=== PATIENT | female | born 1980 | race American Indian/Alaskan Native ===

== ENCOUNTER 2016-07-07 14:27 | Outpatient (CLI) | payer MEDICAID ==
[2016-07-07 15:30] VITALS: BP 117/64
== END 2016-07-07 15:35 | disposition home or self-care (01) ==
LOC: TRG 14:27
PROVIDERS: ATTEND Obstetrics & Gynecology
DX: O47.03 False labor before 37 completed weeks of gestation, third trimester (principal); Z3A.28 28 weeks gestation of pregnancy
CPT/HCPCS: 59025

== ENCOUNTER 2016-07-16 15:41 | Inpatient (IN) | payer MEDICAID ==
--- NOTE | 2016-07-16 17:49 | History and Physical Report ---
History of Present Illness Date of examination: 07/16/16 Date of admission: 07/16/16 Chief complaint: Was sent to [facility] for admission per M Dr. Durham History of present illness: This is a 36 yo at 29+ weeks who was admitted 1 weeks ago and stayed in house for PIH, IUGR, low dopplers and signed out AMA 1 week ago. She had an appt today that showed dopplers decreased and was sent here for admission until delivery. Riddhi has no complaints. no vb no leaking no vb and good fm. No horowitz, bv nor scotomata. OB problem list late entry 15 weeks obesity chronic HTN with preeclampsia asthma previous c/s -desires repeat s/p bmz and mag for neuroprotection HSV2+ Past History Past Medical History: asthma, hypertension, hematologic disorders (sickle cell trait), other Past Surgical History: section, other (LEEP) [employer]MENT [employer] History: chlamydia, herpes Family/Genetic History: diabetes, heart disease, hypertension, other (acute bronchitis ) Social history: , smoking - Obstetrical History Expected Date of Delivery: 09/27/16 Actual Gestation: 29 Week(s) 4 Day(s) : 3 Para: 1 Hx # Term Pregnancies: 1 Number of Pregnancies: 0 Spontaneous Abortions: 0 Induced : 0 Number of Living Children: 1 Medications and Allergies Allergies Allergy/AdvReac Type Severity Reaction Status Date / Time lisinopril Allergy Severe Angioedema Verified 09/30/14 08:57 shellfish derived Allergy Swelling Verified 01/03/13 16:41 Home Medications Medication Instructions Recorded Confirmed Last Taken Type Acetaminophen/Codeine [Tylenol #3] 1 tab PO Q6H PRN #7 tab 04/01/16 Unknown Rx Ondansetron [Zofran TAB] 4 mg PO Q8HR PRN #14 tablet 04/01/16 Unknown Rx Review of Systems Constitutional: weight gain Eyes: deferred Ears, nose, mouth and throat: deferred Cardiovascular: no chest pain, no rapid/irregular heart beat, no syncope, no lightheadedness, no shortness of breath Breasts: deferred Gastrointestinal: no abdominal pain, no nausea, no vomiting, no diarrhea Genitourinary: deferred, normal appearance, no vaginal bleeding, no leakage of fluid, no dysuria, no pelvic pain, no genital sores, no contractions Rectal Exam: deferred Integumentary: deferred - Vital Signs Vital signs: Vital Signs Pulse BP Pulse Ox 70 137/74 98 07/16/16 16:54 07/16/16 16:54 07/16/16 16:54 Temp Pulse Resp BP Pulse Ox 97.8 F 81 20 153/83 98 07/16/16 16:56 07/16/16 17:39 07/16/16 16:56 07/16/16 17:20 07/16/16 17:39 - Physical Exam Breasts: Positive: deferred Cardiovascular: Regular rate, Normal S1, Normal S2 Lungs: Positive: Clear to auscultation, Normal air movement Abdomen: Positive: normal appearance, soft, normal bowel sounds. Negative: distention, tenderness Genitourinary (Female): Positive: normal external genitalia, normal perenium Vulva: both: normal Vagina: Positive: normal moisture. Negative: discharge, ulceration Uterus: Positive: enlarged Extremities: Positive: normal. Negative: tenderness Deep Tendon Reflex Grade: Normal +2 - Obstetrical FHR: category 1 Results All other labs normal. Assessment and Plan A/P HD#1 ( second hospital visit ) preeclampsia mild , chronic htn, iugr, abnormal dopplers 1. admit to labor and delivery 2. Per MFM initiate 24 hr Mag 3. labetolol 300 mg tid 4. aldomet 500 mg po bid 5. doppler and BPP every other day ( Saturday,Sat, Saturday) 6. PIH labs weekly with 24 hr urine will start tomorrow 7. s/p bmz x2 and Mag for neuro protection 8. will keep in house until delivery
[2016-07-16] MEDS ORDERED: COLACE PO PRN (17:57)
[2016-07-16] MEDS ORDERED: TYLENOL PO PRN (17:57)
[2016-07-16] MEDS ORDERED: AMBIEN PO PRN (17:57)
[2016-07-16 18:13] LABS: Basophils % (Auto) 1.1 % (0.0-1.8); Eosinophils % (Auto) 1.4 % (0.0-4.3); Hematocrit 36.3 % (30.3-42.9); Hemoglobin 12.2 gm/dl (10.1-14.3); Mean Corpuscular HGB Conc 34 % (30-34); Mean Corpuscular Hemoglobin 26 pg (28-32); Mean Corpuscular Volume 78 fl (79-97); Platelet Count 181 K/mm3 (140-440); Red Blood Count 4.67 M/mm3 (3.65-5.03); White Blood Count 8.9 K/mm3 (4.5-11.0)
[2016-07-16] MEDS ORDERED: MAGNESIUM SULFATE 4GM/100ML 4 GM/100 ML BAG IV ONE (18:14)
[2016-07-16 18:35] LABS: Alanine Aminotransferase 7 units/L (7-56); Lactate Dehydrogenase 170 units/L (91-180); Uric Acid 6.2 mg/dL (3.5-7.6)
[2016-07-16] MEDS: MAGNESIUM SULFATE 40GM/1000ML 40 GM/1,000 ML BAG IV SCH (19:07)
[2016-07-16 21:07] LABS: Bacteria,Urine 1+ /HPF (Negative); Bilirubin,Urine NEG (Negative); Blood,Urine NEG (Negative); Ketones,Urine TR mg/dL (Negative); Leukocyte Esterase,Urine NEG (Negative); Mucus,Urine FEW /HPF; Nitrite,Urine NEG (Negative); Protein,Urine <15 mg/dL mg/dL (Negative)
[2016-07-16] MEDS: ALDOMET PO SCH (22:29)
[2016-07-16] MEDS: NORMODYNE PO SCH (22:33)
[2016-07-17] MEDS: NORMODYNE PO SCH ×3 (06:10→22:29)
[2016-07-17] MEDS: LACTATED RINGERS 1,000 ML IV SCH ×2 (06:26→19:04)
--- NOTE | 2016-07-17 07:31 | Ultrasound Report ---
BIOPHYSICAL PROFILE: INDICATION: well being. COMPARISON: 07/06/2016. TECHNIQUE: Transabdominal ultrasound with Doppler interrogation. 2 - breathing movements 2 - movements 2 - posture and tone 2 - Qualitative amniotic fluid volume 8 - TOTAL SCORE OF POSSIBLE 8 Heart Rate (bpm) 160
[2016-07-17] MEDS: PRENATAL VITAMIN PO SCH (11:00)
[2016-07-17] MEDS: ALDOMET PO SCH ×2 (11:00→22:27)
--- NOTE | 2016-07-17 12:57 | Ultrasound Report ---
OB LIMITED INDICATION: well being. COMPARISON: 07/06/2016 TECHNIQUE: Transabdominal grayscale ultrasound with Doppler interrogation. Gestation: [place] Position: Transverse - head maternal left Amniotic Fluid: WNL (7-24 cm) ADRIEN = 18.6 cm Placenta: Fundal Placental Grade: I Heart Rate: 137 BPM Cervical length: 3.3 cm (Normal > 3 cm)
--- NOTE | 2016-07-17 13:02 | Ultrasound Report ---
ULTRASOUND OB VELOCIMETRY UMBILICAL ARTERY: HISTORY: well-being. COMPARISON: 07/06/2016 FINDINGS: Transabdominal imaging with spectral Doppler interrogation. 3 separate segments of the cord were evaluated. heart rate measures 131 beats per minute. Abnormal waveforms with no end-diastolic flow noted. Free loop Pulsitivity Indices (PI) in the examined loops demonstrate average PI = 2. CONCLUSION: Loss of end-diastolic flow in the umbilical cord again noted, as above. Thank you for the opportunity to participate in this patient's care.
[2016-07-17] MEDS: MAGNESIUM SULFATE 40GM/1000ML 40 GM/1,000 ML BAG IV SCH (14:00)
--- NOTE | 2016-07-17 14:19 | Progress Note ---
Assessment and Plan A/P HD#2 ( [facility] hospital admisssion after AMA ) preeclampsia mild , chronic htn, iugr, abnormal dopplers 1. admit to labor and delivery 2. Per MFM initiate 24 hr Mag ( end tonight) 3. labetolol 300 mg tid 4. aldomet 500 mg po bid 5. doppler and BPP every other day ( saturday, and saturday) 6. PIH labs weekly with 24 hr urine will start tomorrow 7. s/p bmz x2 and Mag for neuro protection 8. will keep in house until delivery 9. peds is aware of patient Subjective - Subjective Date of service: 07/17/16 Principal diagnosis: chronic htn, iugr, decreased end diastolic flow Interval history: This is a 36 yo at 29+ weeks who was admitted 1 weeks ago and stayed in house for PIH, IUGR, low dopplers and signed out AMA 1 week ago. She had an appt today that showed dopplers decreased and was sent here for admission until delivery. Patinet has no complaints. no vb no leaking no vb and good fm. No horowitz, bv nor scotomata. OB problem list late entry 15 weeks obesity chronic HTN with preeclampsia asthma previous c/s -desires repeat s/p bmz and mag for neuroprotection HSV2+ Patient reports: movement normal, no new complaints, no loss of fluid, no vaginal bleeding, no contractions Objective - Vital Signs Vital Signs: Vital Signs - 12hr 07/17/16 07/17/16 07/17/16 02:16 02:21 02:26 Temperature Pulse Rate 77 78 86 Pulse Rate [ From Monitor] Respiratory Rate Blood Pressure 145/65 Blood Pressure [Left Arm] O2 Sat by Pulse 98 98 98 Oximetry 07/17/16 07/17/16 07/17/16 02:31 02:36 02:41 Temperature Pulse Rate 80 79 78 Pulse Rate [ From Monitor] Respiratory Rate Blood Pressure Blood Pressure [Left Arm] O2 Sat by Pulse 98 98 98 Oximetry 07/17/16 07/17/16 07/17/16 02:46 02:51 02:56 Temperature Pulse Rate 75 77 77 Pulse Rate [ From Monitor] Respiratory Rate Blood Pressure Blood Pressure [Left Arm] O2 Sat by Pulse 99 98 98 Oximetry 07/17/16 07/17/16 07/17/16 03:01 03:06 03:11 Temperature Pulse Rate 77 78 79 Pulse Rate [ From Monitor] Respiratory Rate Blood Pressure Blood Pressure [Left Arm] O2 Sat by Pulse 98 98 97 Oximetry 07/17/16 07/17/16 07/17/16 03:16 03:21 03:26 Temperature Pulse Rate 75 75 75 Pulse Rate [ From Monitor] Respiratory Rate Blood Pressure 161/84 Blood Pressure [Left Arm] O2 Sat by Pulse 97 97 97 Oximetry 07/17/16 07/17/16 07/17/16 03:31 03:36 03:41 Temperature Pulse Rate 81 79 73 Pulse Rate [ From Monitor] Respiratory Rate Blood Pressure Blood Pressure [Left Arm] O2 Sat by Pulse 98 98 96 Oximetry 07/17/16 07/17/16 07/17/16 03:43 03:46 03:51 Temperature Pulse Rate 79 81 81 Pulse Rate [ From Monitor] Respiratory Rate Blood Pressure Blood Pressure [Left Arm] O2 Sat by Pulse 94 96 97 Oximetry 07/17/16 07/17/16 07/17/16 03:56 04:01 04:06 Temperature Pulse Rate 75 75 77 Pulse Rate [ From Monitor] Respiratory Rate Blood Pressure Blood Pressure [Left Arm] O2 Sat by Pulse 97 98 97 Oximetry 07/17/16 07/17/16 07/17/16 04:11 04:15 04:16 Temperature 97.8 F Pulse Rate 77 78 Pulse Rate [ 75 From Monitor] Respiratory 18 Rate Blood Pressure 152/93 Blood Pressure 152/75 [Left Arm] O2 Sat by Pulse 97 97 Oximetry 07/17/16 07/17/16 07/17/16 04:21 04:26 04:31 Temperature Pulse Rate 75 75 74 Pulse Rate [ From Monitor] Respiratory Rate Blood Pressure Blood Pressure [Left Arm] O2 Sat by Pulse 98 98 98 Oximetry 07/17/16 07/17/16 07/17/16 04:36 04:41 04:46 Temperature Pulse Rate 77 77 73 Pulse Rate [ From Monitor] Respiratory Rate Blood Pressure Blood Pressure [Left Arm] O2 Sat by Pulse 97 98 98 Oximetry 07/17/16 07/17/16 07/17/16 04:51 04:56 05:01 Temperature Pulse Rate 74 77 79 Pulse Rate [ From Monitor] Respiratory Rate Blood Pressure Blood Pressure [Left Arm] O2 Sat by Pulse 97 97 98 Oximetry 07/17/16 07/17/16 07/17/16 05:06 05:11 05:16 Temperature Pulse Rate 81 84 76 Pulse Rate [ From Monitor] Respiratory Rate Blood Pressure 154/79 Blood Pressure [Left Arm] O2 Sat by Pulse 96 98 98 Oximetry 07/17/16 07/17/16 07/17/16 05:21 05:26 05:31 Temperature Pulse Rate 79 80 80 Pulse Rate [ From Monitor] Respiratory Rate Blood Pressure Blood Pressure [Left Arm] O2 Sat by Pulse 98 97 93 Oximetry 07/17/16 07/17/16 07/17/16 05:36 05:41 05:46 Temperature Pulse Rate 79 80 75 Pulse Rate [ From Monitor] Respiratory Rate Blood Pressure Blood Pressure [Left Arm] O2 Sat by Pulse 98 96 97 Oximetry 07/17/16 07/17/16 07/17/16 05:51 05:56 06:01 Temperature Pulse Rate 72 73 75 Pulse Rate [ From Monitor] Respiratory Rate Blood Pressure Blood Pressure [Left Arm] O2 Sat by Pulse 98 98 97 Oximetry 07/17/16 07/17/16 07/17/16 06:06 06:10 06:11 Temperature Pulse Rate 75 76 78 Pulse Rate [ From Monitor] Respiratory Rate Blood Pressure 172/87 172/87 Blood Pressure [Left Arm] O2 Sat by Pulse 98 98 Oximetry 07/17/16 07/17/16 07/17/16 06:16 06:21 06:26 Temperature Pulse Rate 68 73 72 Pulse Rate [ From Monitor] Respiratory Rate Blood Pressure 144/77 Blood Pressure [Left Arm] O2 Sat by Pulse 98 97 97 Oximetry 07/17/16 07/17/16 07/17/16 06:31 06:36 07:16 Temperature Pulse Rate 72 75 71 Pulse Rate [ From Monitor] Respiratory Rate Blood Pressure 126/68 Blood Pressure [Left Arm] O2 Sat by Pulse 98 99 Oximetry 07/17/16 07/17/16 07/17/16 08:00 08:07 08:08 Temperature 97.2 F L Pulse Rate 69 73 Pulse Rate [ 73 From Monitor] Respiratory 18 Rate Blood Pressure 178/81 168/67 Blood Pressure 160/70 [Left Arm] O2 Sat by Pulse Oximetry 07/17/16 07/17/16 07/17/16 08:10 08:17 09:16 Temperature Pulse Rate 67 71 68 Pulse Rate [ From Monitor] Respiratory Rate Blood Pressure 160/70 135/85 155/77 Blood Pressure [Left Arm] O2 Sat by Pulse Oximetry 07/17/16 07/17/16 07/17/16 10:16 11:00 11:16 Temperature Pulse Rate 81 81 68 Pulse Rate [ From Monitor] Respiratory Rate Blood Pressure 158/78 158/78 165/84 Blood Pressure [Left Arm] O2 Sat by Pulse Oximetry 07/17/16 07/17/16 11:40 12:16 Temperature 98.0 F Pulse Rate 65 Pulse Rate [ 81 From Monitor] Respiratory 18 Rate Blood Pressure 167/84 Blood Pressure 158/78 [Left Arm] O2 Sat by Pulse Oximetry - Exam Breasts: deferred Cardiovascular: Regular rate, Normal S1, Normal S2 Lungs: Clear to auscultation, Normal air movement Abdomen: Present: normal appearance, soft, normal bowel sounds. Absent: distention, tenderness, guarding Vulva: both: normal Uterus: Present: normal, firm, fundal height above umbilicus FHR: category 1 - Labs Labs: Abnormal Labs 07/16/16 07/16/16 07/17/16 17:50 17:50 08:58 MCV 78 L MCH 26 L Seg Neutrophils % 71.4 H Creatinine 0.6 L Magnesium 4.6 H Laboratory Results - last 24 hr 07/16/16 07/16/16 07/16/16 17:50 17:50 17:50 WBC 8.9 RBC 4.67 Hgb 12.2 Hct 36.3 MCV 78 L MCH 26 L MCHC 34 RDW 14.0 Plt Count 181 Lymph % (Auto) 21.2 [place] % (Auto) 4.9 Eos % (Auto) 1.4 Baso % (Auto) 1.1 Lymph # 1.9 [place]on # 0.4 Eos # 0.1 Baso # 0.1 Seg Neutrophils % 71.4 H Seg Neutrophils # 6.4 Creatinine 0.6 L Estimated GFR > 60 Uric Acid 6.2 Magnesium AST 12 ALT 7 Lactate Dehydrogenase 170 Urine Color Urine Turbidity Urine pH Ur Specific Loiza Urine Protein Urine Glucose (UA) Urine Ketones Urine Blood Urine Nitrite Urine Bilirubin Urine Urobilinogen Ur Leukocyte Esterase Urine WBC (Auto) Urine RBC (Auto) Urine Bacteria (Auto) Urine Mucus Blood Type A POSITIVE Antibody Screen Negative 07/16/16 07/17/16 Unknown 08:58 WBC RBC Hgb Hct MCV MCH MCHC RDW Plt Count Lymph % (Auto) Kenton % (Auto) Eos % (Auto) Baso % (Auto) Lymph # Kenton # Eos # Baso # Seg Neutrophils % Seg Neutrophils # Creatinine Estimated GFR Uric Acid Magnesium 4.6 H AST ALT Lactate Dehydrogenase Urine Color Yellow Urine Turbidity Clear Urine pH 6.0 Ur Specific Loiza 1.019 Urine Protein <15 mg/dl Urine Glucose (UA) Neg Urine Ketones Tr Urine Blood Neg Urine Nitrite Neg Urine Bilirubin Neg Urine Urobilinogen 2.0 Ur Leukocyte Esterase Neg Urine WBC (Auto) 1.0 Urine RBC (Auto) 1.0 Urine Bacteria (Auto) 1+ Urine Mucus Few Blood Type Antibody Screen
--- NOTE | 2016-07-17 19:24 | Consultation ---
History of Present Illness Consult date: 07/17/16 Requesting physician: CITLALI SANTOS History of present illness: IUP at 29 weeks gestation. Recurrent Persistent Absent End Diastolic Flow Chronic hypertension. Rule out superimposed preeclampsia. IUGR of unknown etiology. As you are aware, this is a 36 year old para 1011 who is currently at 29 weeks gestation based on an HENRRY of 09/27/16. Patient was previously hospitalized at [facility] due to AEDV and was discharged home against medical advice. Todays ultrasound continues to show AEDV. During her last visit she was evaluated for CHTN however her blood pressure today is 135/75. A recent 24 hour urine reveals 182 mg protein. Patient DENIES headache, dizziness or blurred vision. PAST OBSTETRICAL HISTORY: 2006: CS at term. BW: 8 pounds 2 oz. PAST MEDICAL HISTORY: See reports in patient's chart. ULTRASOUND AT [facility]:: See reports attached.. Recent ultrasound with [facility] (07/13/16): EFW: 1040 mg ( 2 pounds 5 oz), 2nd percentile. ULTRASOUND AT [facility] 07/17/16: BPP: 8/8 AEDV. 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, herpes Family/Genetic History: diabetes, heart disease, hypertension, other (acute bronchitis ) - Obstetrical History : 3 Medications and Allergies Allergies Allergy/AdvReac Type Severity Reaction Status Date / Time lisinopril Allergy Severe Angioedema Verified 09/30/14 08:57 shellfish derived Allergy Swelling Verified 01/03/13 16:41 Home Medications Medication Instructions Recorded Confirmed Last Taken Type Labetalol 300 mg PO Q8HR 07/17/16 07/17/16 1 Day Ago History Methyldopa [Aldomet] 500 mg PO BID 07/17/16 07/17/16 1 Day Ago History Active Meds: Active Medications Acetaminophen (Tylenol) 650 mg PO Q4H PRN PRN Reason: Pain MILD(1-3)/Fever >100.5/KAHN Docusate Sodium (Colace) 100 mg PO Q12H PRN PRN Reason: Constipation Lactated Ringer's (Lactated Ringers) 1,000 mls @ 125 mls/hr IV DIRECT CAROL Last Admin: 07/17/16 19:04 Dose: 125 mls/hr Magnesium Sulfate (Magnesium Sulfate 40gm/1000ml) 40 gm in 1,000 mls @ 50 mls/ hr IV DIRECT CAROL PRN Reason: 2 GM/HR Last Admin: 07/17/16 14:00 Dose: 2 gm/hr, 50 mls/hr Labetalol HCl (Normodyne) 300 mg PO Q8HR [facility] Last Admin: 07/17/16 14:29 Dose: 300 mg Methyldopa (Aldomet) 500 mg PO Q12HR [facility] Last Admin: 07/17/16 11:00 Dose: 500 mg Multivitamins/Iron/Calcium ( Vitamin) 1 each PO QDAY [facility] Last Admin: 07/17/16 11:00 Dose: 1 each Zolpidem Tartrate (Ambien) 10 mg PO ONCE PRN PRN Reason: Sleep - Vital Signs Vital signs: Vital Signs Pulse BP Pulse Ox 70 137/74 98 07/16/16 16:54 07/16/16 16:54 07/16/16 16:54 Temp Pulse Resp BP Pulse Ox 98.5 F 80 18 143/83 98 07/17/16 15:49 07/17/16 19:16 07/17/16 15:49 07/17/16 19:16 07/17/16 19:16 Results Result Diagrams: 07/16/16 17:50 07/16/16 17:50 Abnormal lab results 07/17/16 07/17/16 Range/Units 08:58 14:49 Magnesium 4.6 H 7.6 H (1.7-2.3) mg/dL All other labs normal. Assessment and Plan ASSESSMENT 1. IUP at 29+ weeks gestation. 2. IUGR of unknown etiology. Cannot rule out aneuploidy. 3. Previous preeclampsia in 2006 4. Previous CS 5. 24 hour urine 182 mg protein. 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 8. BPP: 11/20 9. Status post betamethasone and magnesium sulfate 10. Morbid obesity 11. Doubt HELLP or atypical HELLP at this point. RECOMMENDATIONS: 1. We recommend twice weekly studies for Doppler, biophysical profile and ultrasound to rule out IUGR as needed. 2. Agree with steroids to enhance lung maturity. 3. At 29 weeks gestation; it would appear that there is some benefit to an expectant management protocol to prolong gestation in order to improve outcome without increasing maternal morbidity. 4. Repeat a 24 hour urine for trend in 48 hours. 5. In a patient with MILD preeclampsia we recommend DELIVERY at 37 weeks. 6. In a patient with SEVERE preeclampsia we recommend DELIVERY either AT DIAGNOSIS or at 34 weeks gestation. Reference: REFERENCE: Medically indicated late- and early-term deliveries. Committee Opinion No. [id number]. [employer]. Obstet Gynecol 2013;121:[id number]. 7. Kindly contact [facility] if there is any question as to whether this patient is a candidate for delivery. 8. The indications for discontinuation of expectant management and DELIVERY in this patient would include ANY of the following: heart rate abnormalities, (ie, bradycardia , repetitive late or variable decelerations) Significant new onset proteinuria Thrombocytopenia Hemolysis, Elevation in liver function tests Blood pressure that is very labile or poorly controlled with reasonable doses of intravenous labetalol Symptoms of severe pre-eclampsia epigastric discomfort, headache, dizziness , blurred vision, RUQ pain, seizure. Standard obstetrical indications Thank you for allowing us to participate in the care of this patient. We look forward to the opportunity to assist in her continued management. If you have any questions, we may be reached [phone]. Gita Reyes M.D.
[2016-07-18] MEDS: LACTATED RINGERS 1,000 ML IV SCH ×2 (02:55→14:12)
[2016-07-18] MEDS ORDERED: APRESOLINE ONE (06:19)
[2016-07-18] MEDS: NORMODYNE PO SCH ×3 (06:29→22:18)
[2016-07-18] MEDS ORDERED: APRESOLINE IV ONE ×2 (06:30→17:41)
[2016-07-18] MEDS: PRENATAL VITAMIN PO SCH (10:14)
[2016-07-18] MEDS: ALDOMET PO SCH ×2 (10:14→22:18)
--- NOTE | 2016-07-18 10:17 | Consultation ---
History of Present Illness Consult date: 07/18/16 Requesting physician: CITLALI SANTOS History of present illness: Ms. Urena 36 yo at 29 5/7 weeks followed for PIH, IUGR, low dopplers and signed out AMA 1 week ago. She had an appt with [facility] yesterday that showed dopplers decreased and was sent here for admission until delivery. Patient has no complaints. 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 Family/Genetic History: diabetes, heart disease, hypertension, other (acute bronchitis ) - Obstetrical History : 3 Medications and Allergies Allergies Allergy/AdvReac Type Severity Reaction Status Date / Time lisinopril Allergy Severe Angioedema Verified 09/30/14 08:57 shellfish derived Allergy Swelling Verified 01/03/13 16:41 Home Medications Medication Instructions Recorded Confirmed Last Taken Type Labetalol 300 mg PO Q8HR 07/17/16 07/17/16 1 Day Ago History Methyldopa [Aldomet] 500 mg PO BID 07/17/16 07/17/16 1 Day Ago History Active Meds: Active Medications Acetaminophen (Tylenol) 650 mg PO Q4H PRN PRN Reason: Pain MILD(1-3)/Fever >100.5/KAHN Docusate Sodium (Colace) 100 mg PO Q12H PRN PRN Reason: Constipation Lactated Ringer's (Lactated Ringers) 1,000 mls @ 125 mls/hr IV DIRECT CAROL Last Admin: 07/18/16 02:55 Dose: 125 mls/hr Magnesium Sulfate (Magnesium Sulfate 40gm/1000ml) 40 gm in 1,000 mls @ 50 mls/ hr IV DIRECT CAROL PRN Reason: 2 GM/HR Last Admin: 07/17/16 14:00 Dose: 2 gm/hr, 50 mls/hr Labetalol HCl (Normodyne) 300 mg PO Q8HR [facility] Last Admin: 07/18/16 06:29 Dose: 300 mg Methyldopa (Aldomet) 500 mg PO Q12HR [facility] Last Admin: 07/17/16 22:27 Dose: 500 mg Multivitamins/Iron/Calcium ( Vitamin) 1 each PO QDAY [facility] Last Admin: 07/17/16 11:00 Dose: 1 each Zolpidem Tartrate (Ambien) 10 mg PO ONCE PRN PRN Reason: Sleep - Vital Signs Vital signs: Vital Signs Pulse BP Pulse Ox 70 137/74 98 07/16/16 16:54 07/16/16 16:54 07/16/16 16:54 Temp Pulse Resp BP Pulse Ox 97.4 F L 74 20 150/71 98 07/18/16 08:00 07/18/16 08:45 07/18/16 08:00 07/18/16 08:45 07/18/16 08:22 Results Result Diagrams: 07/16/16 17:50 07/16/16 17:50 Abnormal lab results 07/17/16 07/17/16 07/17/16 Range/Units 14:49 18:20 20:00 Magnesium 7.6 H 8.5 H (1.7-2.3) mg/dL Ur Total Protein 24 Hr 470.00 H (2-200) 07/18/16 Range/Units 01:13 Magnesium 2.6 H (1.7-2.3) mg/dL Ur Total Protein 24 Hr (2-200) All other labs normal. Assessment and Plan Assessment and Plan A/P 1. [place] IUP at 29 5/7 weeks 2. CHTN with Superimposed Mild Preeclampsia 3. IUGR with AEDF 4. Pos Cocaine HD#1 ( second hospital visit ) preeclampsia mild , chronic htn, iugr, abnormal dopplers Recommendations 1. Deliver for S/S of Severe Preeclampsia or compromise 2. Mg X 24 Hours 3. labetolol 300 mg tid 4. aldomet 500 mg po bid 5. doppler and BPP every other day ( Saturday,Sat, Saturday) 6. PIH labs weekly with 24 hr urine 7. s/p bmz x2 and Mag for neuro protection 8. will keep in house until delivery
--- NOTE | 2016-07-18 11:41 | Progress Note ---
Assessment and Plan - Patient Problems (1) growth restriction Current Visit: No Status: Acute Plan to address problem: doppler schedule -W- continue surveillance (2) Hypertension affecting Current Visit: No Status: Acute Qualifiers: Trimester: second trimester Qualified Code(s): O16.2 - Unspecified maternal hypertension, second trimester Subjective - Subjective Date of service: 07/18/16 Principal diagnosis: chronic htn, iugr, decreased end diastolic flow Interval history: 36y/o @ 29+6 weeks admitted for chronic hypertension and IUGR. Patient without any significant complaints. Elevated blood pressures this am responded to hydralazine. Patient reports: movement normal, no new complaints, no loss of fluid, no vaginal bleeding, no contractions Objective - Vital Signs Vital Signs: Vital Signs - 12hr 07/18/16 07/18/16 07/18/16 00:13 01:21 01:22 Temperature Pulse Rate 69 70 68 Pulse Rate [ From Monitor] Respiratory Rate Blood Pressure 169/81 176/79 165/74 Blood Pressure [Left Arm] O2 Sat by Pulse Oximetry 07/18/16 07/18/16 07/18/16 02:13 02:20 02:53 Temperature Pulse Rate 70 64 65 Pulse Rate [ From Monitor] Respiratory Rate Blood Pressure 192/88 173/76 176/80 Blood Pressure [Left Arm] O2 Sat by Pulse Oximetry 07/18/16 07/18/16 07/18/16 02:54 03:47 03:50 Temperature 97.7 F Pulse Rate 67 67 Pulse Rate [ From Monitor] Respiratory 20 Rate Blood Pressure 173/82 195/93 Blood Pressure [Left Arm] O2 Sat by Pulse Oximetry 07/18/16 07/18/16 07/18/16 03:51 04:47 05:47 Temperature Pulse Rate 68 86 81 Pulse Rate [ From Monitor] Respiratory Rate Blood Pressure 179/81 164/98 194/106 Blood Pressure [Left Arm] O2 Sat by Pulse Oximetry 07/18/16 07/18/16 07/18/16 06:18 06:29 06:47 Temperature Pulse Rate 75 75 72 Pulse Rate [ From Monitor] Respiratory Rate Blood Pressure 201/97 201/97 143/69 Blood Pressure [Left Arm] O2 Sat by Pulse Oximetry 07/18/16 07/18/16 07/18/16 07:13 07:14 08:00 Temperature 97.4 F L Pulse Rate 69 70 Pulse Rate [ 70 From Monitor] Respiratory 20 Rate Blood Pressure 146/73 144/72 Blood Pressure 140/73 [Left Arm] O2 Sat by Pulse Oximetry 07/18/16 07/18/16 07/18/16 08:06 08:07 08:12 Temperature Pulse Rate 70 79 76 Pulse Rate [ From Monitor] Respiratory Rate Blood Pressure 161/81 Blood Pressure [Left Arm] O2 Sat by Pulse 98 98 Oximetry 07/18/16 07/18/16 07/18/16 08:17 08:22 08:42 Temperature Pulse Rate 78 71 80 Pulse Rate [ From Monitor] Respiratory Rate Blood Pressure 130/67 Blood Pressure [Left Arm] O2 Sat by Pulse 98 98 Oximetry 07/18/16 08:45 Temperature Pulse Rate 74 Pulse Rate [ From Monitor] Respiratory Rate Blood Pressure 150/71 Blood Pressure [Left Arm] O2 Sat by Pulse Oximetry - Labs Labs: Abnormal Labs 07/16/16 07/16/16 07/17/16 17:50 17:50 08:58 MCV 78 L MCH 26 L Seg Neutrophils % 71.4 H Creatinine 0.6 L Magnesium 4.6 H Ur Total Protein 24 Hr 07/17/16 07/17/16 07/17/16 14:49 18:20 20:00 MCV MCH Seg Neutrophils % Creatinine Magnesium 7.6 H 8.5 H Ur Total Protein 24 Hr 470.00 H 07/18/16 01:13 MCV MCH Seg Neutrophils % Creatinine Magnesium 2.6 H Ur Total Protein 24 Hr Laboratory Results - last 24 hr 07/17/16 07/17/16 07/17/16 14:49 18:20 20:00 Magnesium 7.6 H 8.5 H Urine Total Volume 4700 Ur Total Protein 24 Hr 470.00 H Urine Total Protein 10 07/18/16 01:13 Magnesium 2.6 H Urine Total Volume Ur Total Protein 24 Hr Urine Total Protein
[2016-07-19] MEDS: APRESOLINE IV PRN ×3 (02:26→06:19)
[2016-07-19] MEDS ORDERED: NACL 0.9% 1000 ML 1,000 ML ONE (03:27)
[2016-07-19] MEDS ORDERED: NACL 0.9% 1000 ML 1,000 ML IV ONE (03:32)
[2016-07-19 04:36] LABS: Hematocrit 35.7 % (30.3-42.9); Mean Corpuscular HGB Conc 34 % (30-34); Mean Corpuscular Volume 77 fl (79-97); Platelet Count 192 K/mm3 (140-440); Red Blood Count 4.65 M/mm3 (3.65-5.03); Red Cell Distribution Width 13.7 % (13.2-15.2); White Blood Count 9.7 K/mm3 (4.5-11.0)
[2016-07-19 04:39] LABS: Mean Corpuscular Hemoglobin 26 pg (28-32)
[2016-07-19] MEDS ORDERED: ALDOMET PO SCH ×2 (06:00)
[2016-07-19] MEDS: NORMODYNE PO SCH (06:20)
[2016-07-19] MEDS ORDERED: PITOCin/NS 20 UNIT/1000ML DRIP 20,000 MILLIUNITS/1,000 ML BAG IV ONE (06:56)
[2016-07-19] MEDS ORDERED: BICITRA PO ONE (07:00)
[2016-07-19] MEDS ORDERED: REGLAN IV ONE (07:00)
[2016-07-19] MEDS ORDERED: ANCEF/STERILE WATER 2 GM/20 ML IV NR (07:00)
[2016-07-19] MEDS ORDERED: ceFAZolin 2 GM in NACL 0.9% 100 ML IV ONE (07:00)
[2016-07-19] MEDS ORDERED: PEPCID IV ONE (07:00)
[2016-07-19] MEDS: LACTATED RINGERS 1,000 ML IV SCH (07:15)
--- NOTE | 2016-07-19 07:15 | Progress Note ---
Assessment and Plan - Patient Problems (1) growth restriction Current Visit: No Status: Acute (2) Hypertension affecting Current Visit: No Status: Acute Qualifiers: Trimester: second trimester Qualified Code(s): O16.2 - Unspecified maternal hypertension, second trimester Plan to address problem: will proceed with a RLTCS and BTL Subjective - Subjective Date of service: 07/19/16 Principal diagnosis: chronic htn, iugr, decreased end diastolic flow Interval history: 36y/o @ 30+0 weeks admitted for chronic hypertension and IUGR. The patient has had worsening of her blood pressures during the night not adequately controlled with the addition of IV hydralazine. She has also developed intermittent headaches with the increased blood pressure. Patient reports: new complaints (headache), movement normal, no loss of fluid, no vaginal bleeding, no contractions Objective - Vital Signs Vital Signs: Vital Signs - 12hr 07/18/16 07/18/16 07/18/16 19:22 19:26 20:25 Temperature 98.9 F Pulse Rate 68 80 Respiratory 18 Rate Blood Pressure 160/82 169/81 O2 Sat by Pulse Oximetry 07/18/16 07/18/16 07/18/16 22:16 22:18 23:29 Temperature Pulse Rate 84 84 80 Respiratory Rate Blood Pressure 151/74 151/74 158/82 O2 Sat by Pulse Oximetry 07/19/16 07/19/16 07/19/16 00:04 00:14 01:14 Temperature 98.0 F Pulse Rate 81 71 Respiratory 18 Rate Blood Pressure 141/76 182/87 O2 Sat by Pulse Oximetry 07/19/16 07/19/16 07/19/16 02:20 02:26 02:31 Temperature Pulse Rate 66 68 76 Respiratory Rate Blood Pressure 194/92 164/77 168/81 O2 Sat by Pulse Oximetry 07/19/16 07/19/16 07/19/16 02:36 02:41 02:46 Temperature Pulse Rate 75 75 75 Respiratory Rate Blood Pressure 163/78 153/76 162/77 O2 Sat by Pulse Oximetry 07/19/16 07/19/16 07/19/16 02:51 02:56 03:01 Temperature Pulse Rate 76 76 79 Respiratory Rate Blood Pressure 159/77 165/80 164/82 O2 Sat by Pulse Oximetry 07/19/16 07/19/16 07/19/16 03:06 03:11 03:33 Temperature Pulse Rate 76 78 75 Respiratory Rate Blood Pressure 156/79 159/83 188/99 O2 Sat by Pulse Oximetry 07/19/16 07/19/16 07/19/16 03:42 04:09 04:24 Temperature Pulse Rate 67 84 78 Respiratory Rate Blood Pressure 190/103 179/96 O2 Sat by Pulse 99 Oximetry 07/19/16 07/19/16 07/19/16 04:29 04:33 04:34 Temperature Pulse Rate 79 81 81 Respiratory Rate Blood Pressure 137/80 O2 Sat by Pulse 99 99 Oximetry 07/19/16 07/19/16 07/19/16 04:36 04:39 04:44 Temperature 97.5 F L Pulse Rate 88 83 Respiratory 18 Rate Blood Pressure O2 Sat by Pulse 99 99 Oximetry 07/19/16 07/19/16 07/19/16 04:49 04:54 04:59 Temperature Pulse Rate 80 74 85 Respiratory Rate Blood Pressure O2 Sat by Pulse 99 99 99 Oximetry 07/19/16 07/19/16 07/19/16 05:04 05:09 05:14 Temperature Pulse Rate 76 79 77 Respiratory Rate Blood Pressure O2 Sat by Pulse 99 99 98 Oximetry 07/19/16 07/19/16 07/19/16 05:19 05:24 05:29 Temperature Pulse Rate 79 92 H 78 Respiratory Rate Blood Pressure O2 Sat by Pulse 98 99 98 Oximetry 07/19/16 07/19/16 07/19/16 05:33 05:34 05:39 Temperature Pulse Rate 75 77 78 Respiratory Rate Blood Pressure 182/79 O2 Sat by Pulse 98 98 Oximetry 07/19/16 07/19/16 07/19/16 05:44 05:50 05:55 Temperature Pulse Rate 77 80 80 Respiratory Rate Blood Pressure O2 Sat by Pulse 98 98 98 Oximetry 07/19/16 07/19/16 07/19/16 05:59 06:05 06:10 Temperature Pulse Rate 80 79 82 Respiratory Rate Blood Pressure O2 Sat by Pulse 98 98 98 Oximetry 07/19/16 07/19/16 07/19/16 06:14 06:17 06:19 Temperature Pulse Rate 78 78 78 Respiratory Rate Blood Pressure 139/78 182/79 O2 Sat by Pulse 98 99 Oximetry 07/19/16 07/19/16 07/19/16 06:21 06:24 06:27 Temperature Pulse Rate 88 83 82 Respiratory Rate Blood Pressure 146/80 139/70 O2 Sat by Pulse 99 Oximetry 07/19/16 07/19/16 07/19/16 06:30 06:31 06:35 Temperature Pulse Rate 88 88 89 Respiratory Rate Blood Pressure 142/75 O2 Sat by Pulse 99 99 Oximetry 07/19/16 07/19/16 07/19/16 06:36 06:40 06:45 Temperature Pulse Rate 94 H 85 82 Respiratory Rate Blood Pressure 143/75 O2 Sat by Pulse 99 99 Oximetry 07/19/16 07/19/16 07/19/16 06:50 06:54 07:00 Temperature Pulse Rate 84 85 89 Respiratory Rate Blood Pressure O2 Sat by Pulse 99 99 99 Oximetry - Labs Labs: Abnormal Labs 07/16/16 07/16/16 07/17/16 17:50 17:50 08:58 MCV 78 L MCH 26 L Seg Neutrophils % 71.4 H Creatinine 0.6 L Magnesium 4.6 H Ur Total Protein 24 Hr 07/17/16 07/17/16 07/17/16 14:49 18:20 20:00 MCV MCH Seg Neutrophils % Creatinine Magnesium 7.6 H 8.5 H Ur Total Protein 24 Hr 470.00 H 07/18/16 07/19/16 01:13 04:15 MCV 77 L MCH 26 L Seg Neutrophils % Creatinine Magnesium 2.6 H Ur Total Protein 24 Hr Laboratory Results - last 24 hr 07/19/16 07/19/16 07/19/16 04:15 04:15 Unknown WBC 9.7 RBC 4.65 Hgb 12.0 Hct 35.7 MCV 77 L MCH 26 L MCHC 34 RDW 13.7 Plt Count 192 Fibronectin Negative Blood Type A POSITIVE Antibody Screen Negative
--- NOTE | 2016-07-19 07:20 | Procedure Note ---
OB Delivery Note - Delivery Date of Delivery: 07/19/16 Surgeon: JOSSELIN MIN Estimated blood loss: other (700ml) - Section Preop diagnosis: repeat , desires sterilization Postop diagnosis: same section procedure: section, repeat low transverse, bilateral tubal ligation Disposition: PACU Complications: none - Infant A at 1 minute: 4 at 5 minutes: 5 Gender: Female (the 10 minute was 8. Infant weight was 1.11 kg)
--- NOTE | 2016-07-19 07:22 | Operative Report ---
Operative Report Operative Report: Date of surgery: 07/19/2016 Preoperative diagnosis: at 30+0 weeks; uncontrolled chronic hypertension; intrauterine growth restriction; severe preeclampsia Postoperative diagnosis: Same as above Procedure: Repeat low transverse delivery and bilateral tubal ligation via [place] method Surgeon: Veronica Hill M.D. Anesthesia: Regional Estimated blood loss: 700 mL Findings: Liveborn female with Apgars of 4,5 and 8. Weight 1.11 kg Indications: A 36-year-old 011 at 30+0 weeks. Followed during her for chronic hypertension. Her course is complicated by intrauterine growth restriction and worsening of her blood pressures. Procedure: The patient was taken to the operating room and given regional anesthesia without complication. She was prepped and draped in a normal sterile fashion. A Pfannenstiel skin incision was made down to layer the fascia which was nicked in the midline extended laterally with the Bovie cautery. The superior aspect of the rectus fascia was grasped with Galena clamps x2 and the rectus muscles off sharply. This was done in inferior fashion as well. The rectus muscle midline and peritoneum entered bluntly. An Raymon retractor was then inserted. A bladder blade was placed. The vesicouterine peritoneum was then entered sharply with Metzenbaum scissors. A bladder flap was created digitally. A low transverse uterine incision was then made and extended digitally. There was clear fluid upon entry into the uterine cavity. The head was delivered through the incision with fundal pressure. The cord was clamped and cut x2 and infant was passed off to the pediatricians in attendance. The placenta was then manually extracted. The uterus was then exteriorized and cleared of clots and debris. The uterine incision was then closed in a running locked fashion with 0 Vicryl additional imbricating stitch was applied for 2 layer closure. Attention was then turned to the patient's right fallopian tube which was followed out to the fimbriated end. A clear portion of the tube was grasped a Lola. The mesosalpinx was entered with the Bovie cautery oriented window was created. The distal and proximal area of the ampullary tube was ligated 2 with O plain gut. A 1 cm portion of ampullary tube was then excised. This was performed on the contralateral side as well. The posterior cul-de-sac was then copiously irrigated. The uterus was replaced back into the abdomen and pelvis were the gutters were then irrigated. The Raymon retractor was then removed. The peritoneum was then reapproximated with 3-0 Vicryl incorporating the rectus muscle. The fascia was then closed with 0 Vicryl in a running fashion. The skin was then reapproximated with 3-0 Monocryl on a Mina needle subcuticular fashion. Steri-Strips to place across the incision and a Crede procedures performed at the end of the surgery. A pressure dressing was applied to the incision. The surgery productive of a liveborn female infant with Apgars of 4, 5 and 8 at 10 minutes. weight is 1.11 kg. The patient was taken to the recovery room in stable condition. All sponge laps and needle counts correct x2.
--- NOTE | 2016-07-19 07:23 | Anesthesia Consultation ---
Anesthesia Consult and Med Hx Date of service: 07/19/16 - Airway Anesthetic Teeth Evaluation: Good ROM Head & Neck: Adequate Mental/Hyoid Distance: Adequate Mallampati Class: Class II Intubation Access Assessment: Probably Good - Pre-Operative Health Status ASA Pre-Surgery Classification: ASA3 Proposed Anesthetic Plan: Spinal - Pulmonary Hx Smoking: Yes (current everyday smoker) Hx Asthma: No COPD: No Hx Pneumonia: No - Cardiovascular System Hx Hypertension: Yes (PIH) - Central Nervous System Hx Seizures: No (preeclampsia) Hx Psychiatric Problems: No - Endocrine Hx Renal Disease: No Hx End Stage Renal Disease: No Hx Hypothyroidism: No Hx Hyperthyroidism: No - Hematic Hx Anemia: No Hx Sickle Cell Disease: No - Other Systems Hx Alcohol Use: No Hx Cancer: No Hx Obesity: Yes (BMI 39.2) - Additional Comments Anesthesia Medical History Comments: 30 weeks, IUGR, PIH, HTN
--- NOTE | 2016-07-19 07:26 | Anesthesia Day of Surgery ---
Anesthesia Day of Surgery - Day of Surgery Patient Examined: Yes Patient H&P Reviewed: Yes Patient is NPO: Yes (had clear juice @ 2AM)
[2016-07-19] MEDS ORDERED: MORPHINE ONE (07:42)
[2016-07-19] MEDS ORDERED: MAGNESIUM SULFATE 4GM/100ML 4 GM/100 ML BAG IV ONE (07:45)
[2016-07-19] MEDS ORDERED: MORPHINE IV PRN (08:00)
[2016-07-19] MEDS ORDERED: PHENERGAN PR PRN (08:00)
[2016-07-19] MEDS ORDERED: ZOFRAN IV PRN (08:00)
[2016-07-19] MEDS ORDERED: LANSINOH TP PRN (08:00)
[2016-07-19] MEDS ORDERED: DILAUDID IV PRN (08:00)
[2016-07-19] MEDS ORDERED: NARCAN 0.4 MG/1 ML IV PRN (08:00)
[2016-07-19] MEDS ORDERED: PITOCin/NS 20 UNIT/1000ML DRIP 20 UNITS/1,000 ML BAG IV SCH (08:00)
[2016-07-19] MEDS ORDERED: SODIUM CHLORIDE FLUSH SYRINGE 10 ML IV PRN (08:00)
[2016-07-19] MEDS ORDERED: PHENERGAN PO PRN (08:00)
[2016-07-19] MEDS ORDERED: TUCKS PAD TP PRN (08:00)
[2016-07-19] MEDS ORDERED: TYLENOL PO PRN (08:00)
--- NOTE | 2016-07-19 08:25 | Ultrasound Report ---
BIOPHYSICAL PROFILE: INDICATION: well being. COMPARISON: 07/16/2016. TECHNIQUE: Transabdominal ultrasound with Doppler interrogation. 2 - breathing movements 2 - movements 2 - posture and tone 2 - Qualitative amniotic fluid volume 8 - TOTAL SCORE OF POSSIBLE 8 Heart Rate (bpm) 146
[2016-07-19] MEDS ORDERED: WATER FOR IRRIG STERILE IR ONE ×2 (08:37→09:43)
[2016-07-19] MEDS ORDERED: NACL 0.9% IR ONE ×2 (08:38→09:44)
--- NOTE | 2016-07-19 08:42 | Ultrasound Report ---
ULTRASOUND OB VELOCIMETRY UMBILICAL ARTERY HISTORY: well-being. FINDINGS: Transabdominal ultrasound was spectral Doppler interrogation was performed. 3 segments of the cord were evaluated. heart rate measures 146 beats per minute. The spectral waveforms are abnormal demonstrating loss of end-diastolic flow. The pulsatility index average measures 2.53. The S./D. ratio average measures 37.7
[2016-07-19] MEDS ORDERED: ZOFRAN ONE (08:54)
[2016-07-19] MEDS: MAGNESIUM SULFATE 40GM/1000ML 40 GM/1,000 ML BAG IV SCH (09:50)
--- NOTE | 2016-07-19 12:14 | Post Anesthesia Evaluation ---
- Post Anesthesia Evaluation Patient Participated: Yes Airway Patent: Yes Stable Respiratory Function: Yes Temp > 96.8F: Yes Pain Manageable: Yes Adequeate Hydration: Yes Anesthesia Complications: No Block Receding Appropriately: Yes
[2016-07-19] MEDS: D5LR 1,000 ML IV SCH (13:15)
[2016-07-19 20:07] LABS: Hematocrit 34.2 % (30.3-42.9); Hemoglobin 11.5 gm/dl (10.1-14.3)
[2016-07-19] MEDS: PERCOCET 5/325 PO PRN (20:22)
[2016-07-19] MEDS ORDERED: MILK OF MAGNESIA PO PRN (22:00)
[2016-07-20] MEDS: PERCOCET 5/325 PO PRN ×4 (02:54→19:50)
[2016-07-20] MEDS: D5LR 1,000 ML IV SCH (03:13)
[2016-07-20] MEDS: MAGNESIUM SULFATE 40GM/1000ML 40 GM/1,000 ML BAG IV SCH (04:29)
[2016-07-20] MEDS: MOTRIN PO PRN (08:30)
--- NOTE | 2016-07-20 10:38 | Progress Note ---
Subjective Date of service: 07/20/16 Principal diagnosis: chronic htn, iugr, decreased end diastolic flow Interval history: 1st POD after Patient is in the bed, comfortable. Pain is well controlled with pain meds. Ambulated well. No residual neurological deficit. No anesthesia complications Objective - Constitutional Vitals: Vital Signs - 12hr 07/19/16 07/20/16 07/20/16 23:50 00:00 02:15 Temperature 98.2 F 97.9 F Pulse Rate [ 80 From Monitor] Pulse Rate [ 77 Right Radial] Respiratory 18 18 Rate Blood Pressure 152/88 [Left Arm] Blood Pressure 141/74 [Right Arm] 07/20/16 07/20/16 07/20/16 04:05 06:10 08:30 Temperature 98.6 F 98.2 F Pulse Rate [ 73 67 From Monitor] Pulse Rate [ Right Radial] Respiratory 18 20 20 Rate Blood Pressure 143/68 [Left Arm] Blood Pressure 145/82 [Right Arm] 07/20/16 08:58 Temperature 98.6 F Pulse Rate [ 71 From Monitor] Pulse Rate [ Right Radial] Respiratory 20 Rate Blood Pressure 160/87 [Left Arm] Blood Pressure [Right Arm] - Labs CBC & Chem 7: 07/19/16 19:35 07/16/16 17:50
[2016-07-20] MEDS: MYLICON PO PRN ×2 (15:19→22:10)
--- NOTE | 2016-07-20 16:04 | Progress Note ---
Assessment and Plan - Patient Problems (1) growth restriction Current Visit: No Status: Acute (2) Hypertension affecting Current Visit: No Status: Acute Qualifiers: Trimester: second trimester Qualified Code(s): O16.2 - Unspecified maternal hypertension, second trimester Plan to address problem: continue blood pressure monitoring and postoperative care Subjective - Subjective Date of service: 07/20/16 Principal diagnosis: chronic htn, iugr, decreased end diastolic flow Interval history: 36y/o completed magnesium therapy. Patient states pain is being controlled. Tolerating diet. Patient reports: appetite normal, pain well controlled : in NICU Objective - Vital Signs Latest vital signs: Vital Signs Temp Pulse Pulse Resp BP BP 07/20/16 13:05 20 07/20/16 12:12 98.8 F 76 20 153/89 07/20/16 08:58 98.6 F 71 20 160/87 07/20/16 08:30 20 07/20/16 06:10 98.2 F 67 20 145/82 07/20/16 04:05 98.6 F 73 18 143/68 07/20/16 02:15 97.9 F 80 18 152/88 07/20/16 00:00 98.2 F 07/19/16 23:50 77 18 141/74 07/19/16 22:00 97.6 F 81 18 128/58 07/19/16 19:15 97.9 F 78 18 132/68 07/19/16 18:28 83 20 126/57 07/19/16 16:10 97.7 F 88 20 126/64 Intake and Output 07/20/16 07/20/16 07/20/16 06:59 14:59 22:59 Intake Total 1040 570 Output Total 4000 1400 Balance -2960 -830 Intake: IV 200 MAGNESIUM SULFATE 40GM/ 200 1000ML 40 gm In 1,000 ml @ 2 GM/HR 50 mls/hr IV DIRECT CAROL Rx#:[id number] Oral 570 Intake, Free Water 840 Output: Urine 4000 1400 Indwelling Catheter 2400 1000 Void 1600 400 Other: Total, Intake Amount 240 Total, Output Amount 1600 400 Voiding Method Toilet # Voids Void 1 - Exam Incision: Present: dressed
[2016-07-20] MEDS: ALDOMET PO SCH (22:10)
[2016-07-21] MEDS: PERCOCET 5/325 PO PRN ×2 (05:30→12:25)
[2016-07-21] MEDS: ALDOMET PO SCH ×2 (10:05→22:00)
--- NOTE | 2016-07-21 14:15 | Progress Note ---
Assessment and Plan POD 2 s/p but still with labile blood pressures. If pressures remain stable overnight will consider discharge in morning. Subjective - Subjective Date of service: 07/21/16 Principal diagnosis: chronic htn, iugr, decreased end diastolic flow Interval history: patient with chronic hypertension pod 2 from Patient reports: appetite normal, voiding normally, pain well controlled, ambulating normally : in NICU Objective - Vital Signs Latest vital signs: Vital Signs Temp Pulse Pulse Pulse Resp BP BP 07/21/16 12:25 20 07/21/16 10:05 68 151/83 07/21/16 09:31 98.2 F 68 68 18 151/83 07/21/16 05:45 68 140/75 07/21/16 01:35 98.3 F 73 18 158/85 07/20/16 22:10 85 149/81 07/20/16 20:30 98.1 F 74 20 07/20/16 18:37 98.4 F 98 H 20 150/70 BP 07/21/16 12:25 07/21/16 10:05 07/21/16 09:31 07/21/16 05:45 07/21/16 01:35 07/20/16 22:10 07/20/16 20:30 175/101 07/20/16 18:37 Intake and Output 07/20/16 07/21/16 07/21/16 22:59 06:59 14:59 Intake Total 360 360 Output Total 600 Balance -240 360 Intake: Oral 360 Intake, Free Water 360 Output: Urine 600 Void 600 Other: Total, Intake Amount 240 Total, Output Amount 600 Voiding Method Toilet Toilet # Voids Void 1 3 - Exam Breasts: Present: deferred Cardiovascular: Present: Regular rate, Normal S1, Normal S2 Lungs: Present: Clear to auscultation, Normal air movement Abdomen: Present: normal appearance, soft, normal bowel sounds Extremities: Present: normal Deep Tendon Reflex Grade: Normal +2 Incision: Present: normal, dry, intact
[2016-07-21] MEDS: MOTRIN PO PRN (20:45)
[2016-07-21] MEDS: MYLICON PO PRN (20:45)
[2016-07-22] MEDS ORDERED: APRESOLINE IV ONE (06:27)
--- NOTE | 2016-07-22 07:08 | Progress Note ---
Assessment and Plan POD 3 s/p for hypertension and IUGR. Patient continues with severely elevated blood pressures. Will add Procardia 90 xl to regimen to see if control possible. May be able to discharge on tomorrow. Subjective - Subjective Date of service: 07/22/16 Principal diagnosis: chronic htn, iugr, decreased end diastolic flow Interval history: patient with chronic hypertension pod 2 from Patient reports: appetite normal, voiding normally, pain well controlled, ambulating normally [place]: in NICU Objective - Vital Signs Latest vital signs: Vital Signs Temp Pulse Pulse Pulse Resp BP BP 07/22/16 05:40 180/102 07/22/16 00:30 97.7 F 77 20 160/81 07/21/16 22:00 78 152/82 152/82 07/21/16 20:40 74 20 157/98 07/21/16 12:25 20 07/21/16 10:05 68 151/83 07/21/16 09:31 98.2 F 68 68 18 151/83 Intake and Output 07/21/16 07/22/16 07/22/16 22:59 06:59 14:59 Intake Total 360 240 Balance 360 240 Intake: Oral 360 Intake, Free Water 240 Other: Total, Intake Amount 360 Voiding Method Toilet # Voids Void 2 1 - Exam Cardiovascular: Present: Regular rate, Normal S1, Normal S2 Lungs: Present: Clear to auscultation, Normal air movement Abdomen: Present: normal appearance, soft, normal bowel sounds Uterus: Present: normal, firm Extremities: Present: normal
[2016-07-22] MEDS: PERCOCET 5/325 PO PRN ×3 (09:45→23:40)
[2016-07-22] MEDS: PROCARDIA XL PO SCH (10:00)
[2016-07-22] MEDS: ALDOMET PO SCH ×2 (10:00→22:01)
--- NOTE | 2016-07-23 08:00 | Progress Note ---
Assessment and Plan A: POD#4 s/p repeat with BTL at 29 wks secondary to chronic hypertension with superimposed preeclampsia P: Routine care. Discharge today with blood pressure check in one week. Subjective - Subjective Date of service: 07/23/16 Principal diagnosis: chronic htn, iugr, decreased end diastolic flow Interval history: Blood pressures much improved on Procardia XL 90mg daily. She had a bowel movement last night as well. Baby in NICU doing well. Patient reports: appetite normal, voiding normally, pain well controlled, flatus , bowel movement, ambulating normally, no nauseated : in NICU Objective - Vital Signs Latest vital signs: Vital Signs Temp Pulse Pulse Pulse Resp BP BP 07/23/16 04:00 98.6 F 67 16 131/72 07/22/16 23:37 97.9 F 86 20 07/22/16 22:01 85 114/67 07/22/16 18:36 20 07/22/16 16:00 98.6 F 86 18 07/22/16 12:05 98.0 F 73 18 07/22/16 10:00 88 140/90 07/22/16 09:45 20 140/90 07/22/16 09:21 98.2 F 68 14 07/22/16 08:30 160/90 07/22/16 08:00 152/90 BP 07/23/16 04:00 07/22/16 23:37 135/80 07/22/16 22:01 07/22/16 18:36 07/22/16 16:00 124/63 07/22/16 12:05 159/84 07/22/16 10:00 07/22/16 09:45 07/22/16 09:21 164/102 07/22/16 08:30 07/22/16 08:00 Intake and Output 07/22/16 07/23/16 07/23/16 22:59 06:59 14:59 Intake Total 1050 550 Output Total 600 Balance 450 550 Intake: Oral 550 300 Intake, Free Water 500 250 Output: Urine 600 Void 600 Other: Total, Intake Amount 500 300 Total, Output Amount 600 Voiding Method Toilet # Voids Void 1 # Bowel Movements 0 - Exam Breasts: Present: deferred Cardiovascular: Present: Regular rate Lungs: Present: Clear to auscultation Abdomen: Present: soft (obese) Uterus: Present: firm, fundal height below umbilicus Extremities: Present: normal. Absent: edema Incision: Present: intact
--- NOTE | 2016-07-23 08:01 | Discharge Summary ---
Providers - Providers Date of Admission: 07/16/16 17:57 Date of discharge: 07/23/16 Attending physician: CITLALI SANTOS MD Primary care physician: CITLALI SANTOS MD Hospitalization Reason for admission: other (hypertension ) Delivery: Procedure: section, bilateral tubal ligation, repeat low transverse Procedure details: Repeat section with bilateral tubal ligation; please see operative note. Incision: intact Other procedures: none complications: none Discharge diagnosis: delivery [place] baby: female Hospital course: Patient was initially admitted for inpatient observation of decreased Doppler flow, intrauterine growth restriction, and chronic hypertension with superimposed preeclampsia at 29 weeks. During her hospitalization her blood pressures became uncontrollable despite antihypertensives and the decision was made to proceed with repeat delivery with bilateral tubal ligation. Her operative course was complicated by poor blood pressure control initially until Procardia XL 90 mg was added to her regimen. She was observed for 4 days postoperatively and met discharge criteria on postoperative #4. She will be discharged with follow-up in 1 week for blood pressure check. Her baby remains in the NICU. Condition at discharge: Stable Disposition: DISCHARGED TO HOME OR SELFCARE - Discharge Diagnoses (1) Chronic hypertension in obstetric context in third trimester Status: Acute (2) Pre-eclampsia superimposed on chronic hypertension, delivered Status: Acute (3) Obesity (BMI 30-39.9) Status: Acute (4) delivery delivered Status: Acute (5) growth restriction Status: Acute Plan - Discharge Medications Prescriptions: Docusate Sodium [Colace] 100 mg PO BID PRN #60 capsule PRN Reason: Constipation Ibuprofen [Motrin] 800 mg PO Q8HR PRN #60 tablet PRN Reason: Pain Methyldopa [Aldomet] 500 mg PO TID #90 tablet NIFEdipine XL [Procardia Xl] 90 mg PO QDAY #30 tablet Oxycodone HCl/Acetaminophen [Percocet 7.5/325 mg] 1 each PO Q6HR PRN #45 tablet PRN Reason: Pain - Provider Discharge Summary Additional instructions: [] Smoking cessation referral if applicable(refer to patient education folder for contact #) [] Refer to [facility] Booklet Call your doctor immediately for: * Fever > 100.5 * Heavy vaginal bleeding ( >1 pad per hour) * Severe persistent headache * Shortness of breath * Reddened, hot, painful area to leg or breast * Drainage or odor from incision. * Keep incision clean and dry at all times and follow doctor's instructions regarding bathing/showering - Follow up plan Follow up: CITLALI SANTOS MD [Primary Care Provider] - 7 Days
[2016-07-23] MEDS: MOTRIN PO PRN (08:10)
[2016-07-23 09:08] VITALS: BP 128/73
[2016-07-23] MEDS: PROCARDIA XL PO SCH (09:37)
[2016-07-23] MEDS: ALDOMET PO SCH (09:37)
== END 2016-07-23 13:20 | disposition home or self-care (01) | DRG 765 ==
LOC: TRG 15:41 → LD 15:42 → TRG 17:57 → APU 07-19 07:39 → OB 07-19 10:47
PROVIDERS: ADMIT Obstetrics & Gynecology; ATTEND Obstetrics & Gynecology
PROC: 10D00Z1 Extraction of Products of Conception, Low, Open Approach (ICD-10-PCS; principal; 2016-07-19)
PROC: 0UL70ZZ Occlusion of Bilateral Fallopian Tubes, Open Approach (ICD-10-PCS; 2016-07-19)
PROC: 4A1 Measurement and Monitoring, Physiological Systems, Monitoring (ICD-10-PCS; 2016-07-19)
DX: O14.13 Severe pre-eclampsia, third trimester (principal); O60.14X0 Preterm labor third trimester with preterm delivery third trimester, not applicable or unspecified; O34.211 Maternal care for low transverse scar from previous cesarean delivery; O99.213 Obesity complicating pregnancy, third trimester; E66.01 Morbid (severe) obesity due to excess calories; Z68.39 Body mass index [BMI] 39.0-39.9, adult; O36.5930 Maternal care for other known or suspected poor fetal growth, third trimester, not applicable or unspecified; O10.02 Pre-existing essential hypertension complicating childbirth; O99.334 Smoking (tobacco) complicating childbirth; F17.210 Nicotine dependence, cigarettes, uncomplicated; O99.52 Diseases of the respiratory system complicating childbirth; J45.909 Unspecified asthma, uncomplicated; Z88.8 Allergy status to other drugs, medicaments and biological substances; Z91.013 Allergy to seafood; Z37.0 Single live birth; Z30.2 Encounter for sterilization; Z3A.29 29 weeks gestation of pregnancy; O10.913 Unspecified pre-existing hypertension complicating pregnancy, third trimester; O98.519 Other viral diseases complicating pregnancy, unspecified trimester; B00.9 Herpesviral infection, unspecified
CPT/HCPCS: 36415; 76819; 76820; 81001; 82565; 82731; 83615; 83735; 84156; 84450; 84460; 84550; 85014; 85018; 85025; 85027; 86850; 86900; 86901; 88302; 88307; 99211; G0463; J0360; J0690; J2270; J2405; J2590; J2765; J3475; J7030; J7120; J7121

== ENCOUNTER 2016-10-14 09:27 | Emergency (ER) | payer MEDICAID ==
[2016-10-14] MEDS ORDERED: NACL ONE (13:06)
[2016-10-14 14:15] LABS: Basophils % (Auto) 0.5 % (0.0-1.8); Eosinophils % (Auto) 1.2 % (0.0-4.3); Hematocrit 38.3 % (30.3-42.9); Hemoglobin 12.3 gm/dl (10.1-14.3); Mean Corpuscular HGB Conc 32 % (30-34); Mean Corpuscular Volume 76 fl (79-97); Platelet Count 221 K/mm3 (140-440); Red Blood Count 5.06 M/mm3 (3.65-5.03); Red Cell Distribution Width 14.7 % (13.2-15.2); White Blood Count 7.2 K/mm3 (4.5-11.0)
[2016-10-14 14:22] LABS: Bilirubin,Urine NEG (Negative); Blood,Urine NEG (Negative); Ketones,Urine NEG (Negative); Leukocyte Esterase,Urine LG (Negative); Mucus,Urine FEW /HPF; Nitrite,Urine NEG (Negative); Protein,Urine <15 mg/dL mg/dL (Negative); Urobilinogen,Urine < 2.0 mg/dL (<2.0)
[2016-10-14 14:26] LABS: Mean Corpuscular Hemoglobin 24 pg (28-32)
[2016-10-14 14:28] LABS: Alanine Aminotransferase 15 units/L (7-56); Albumin 4.4 g/dL (3.9-5); Albumin/Globulin Ratio 1.6 %; Alkaline Phosphatase 73 units/L (35-129); Amylase 81 units/L (27-131); Anion Gap 16 mmol/L; BUN/Creatinine Ratio 18.33; Blood Urea Nitrogen 11 mg/dL (7-17); Calcium 9.1 mg/dL (8.4-10.2); Carbon Dioxide 29 mmol/L (22-30); Chloride 102.4 mmol/L (98-107); Glucose 80 mg/dL (65-100); Lipase 31 units/L (13-60); Sodium 143 mmol/L (137-145); Total Protein 7.2 g/dL (6.3-8.2)
[2016-10-14 14:29] LABS: Bilirubin,Direct < 0.2 mg/dL (0-0.2)
[2016-10-14 14:44] VITALS: BP 174/90
--- NOTE | 2016-10-14 15:40 | Cat Scan Report ---
FINAL REPORT EXAM: CT ABDOMEN PELVIS W CON HISTORY: abd pain TECHNIQUE: CT images are acquired through the Abdomen and Pelvis following intravenous administration of contrast. Transaxial, coronal and sagittal reformations are provided. PRIORS: 10/18/2015 FINDINGS: Partially visualized intrathoracic contents are unremarkable. The liver, gallbladder, pancreas, spleen, and adrenal glands are within normal limits. Kidneys show no worrisome lesions, hydronephrosis, or calculi. Urinary bladder is without intraluminal stone. Small and large bowel are normal in caliber. Appendix is normal. No free air, free fluid, or lymphadenopathy identified. Aorta is normal in course and caliber. Anteverted uterus. Small amount of free fluid in the pelvis is likely physiologic. Rectus diastasis. Question prior herniorrhaphy versus scarring and peritoneal thickening anterior to the urinary bladder. Superficial soft tissues are unremarkable. No acute or aggressive appearing skeletal findings. IMPRESSION: No acute intra-abdominal process.
--- NOTE | 2016-10-14 18:48 | Emergency Department Report ---
Entered by AMBROSIO PAINTER, acting as scribe for MIREILLE WHALEY NP. ED Abdominal Pain HPI - General Chief Complaint: Upper Respiratory Infection Stated Complaint: ALLERGIC REACTION Time Seen by Provider: 10/14/16 12:13 Source: patient Mode of arrival: Ambulatory Limitations: No Limitations - History of Present Illness Initial Comments: This is a 36 y/o female, nontoxic, well nourished in appearance, no acute signs of distress with a PMHx of PIH presents with c/o constant, sharp abdominal pain that began 5 days ago. Rates pain a 7/10 in severity. Patient states she recently had a tooth pulled and was prescribed Amoxicillin. Patient states her onset of abdominal pain began after taking the antibiotics 5 days ago. Patient reports associated itchy throat and rhinorrhea, but she denies rash, fever, chills, nausea, vomiting, chest pain, SOB, KAHN or dizziness, numbness, and tingling. LMP 09/26/2016. Allergic to lisinopril. MD Complaint: abdominal pain Onset/Timin -: days(s) Location: epigastric Radiation: none Migration to: no migration Severity: moderate Severity scale (0 -10): 7 Quality: sharp Consistency: constant Improves With: nothing Worsens With: medication (Amoxicillin) Context: recent antibiotic use (Amoxicillin) Associated Symptoms: denies other symptoms. denies: nausea, vomiting, diarrhea , fever, chills, constipation, dysuria, hematemesis, hematochezia, hematuria, syncope - Related Data Home Medications Medication Instructions Recorded Confirmed Last Taken Labetalol 300 mg PO Q8HR 07/17/16 07/17/16 1 Day Ago Methyldopa [Aldomet] 500 mg PO BID 07/17/16 07/17/16 1 Day Ago Previous Rx's Medication Instructions Recorded Last Taken Type Docusate Sodium [Colace] 100 mg PO BID PRN #60 capsule 07/20/16 Unknown Rx Ibuprofen [Motrin] 800 mg PO Q8HR PRN #60 tablet 07/20/16 Unknown Rx Methyldopa [Aldomet] 500 mg PO TID #90 tablet 07/20/16 Unknown Rx Oxycodone HCl/Acetaminophen 1 each PO Q6HR PRN #45 tablet 07/20/16 Unknown Rx [Percocet 7.5/325 mg] NIFEdipine XL [Procardia Xl] 90 mg PO QDAY #30 tablet 07/23/16 Unknown Rx Nitrofurantoin [place]/M-Cryst 100 mg PO Q12HR #14 capsule 10/14/16 Unknown Rx [Macrobid CAP] Allergies Allergy/AdvReac Type Severity Reaction Status Date / Time lisinopril Allergy Severe Angioedema Verified 09/30/14 08:57 shellfish derived Allergy Swelling Verified 01/03/13 16:41 ED Review of Systems Comment: All other systems reviewed and negative Constitutional: denies: chills, diaphoresis, fever, weakness Eyes: denies: eye pain, eye discharge, vision change ENT: throat pain (itchy throat), other (rhinorrhea). denies: ear pain, congestion Respiratory: denies: cough, orthopnea, shortness of breath, SOB with exertion, SOB at rest, stridor, wheezing Cardiovascular: denies: chest pain, palpitations, dyspnea on exertion, orthopnea , edema, syncope Gastrointestinal: abdominal pain. denies: nausea, vomiting, diarrhea, constipation, hematemesis, melena, hematochezia Genitourinary: denies: urgency, dysuria, frequency, hematuria, discharge Musculoskeletal: denies: back pain, joint swelling, arthralgia Skin: denies: rash, lesions Neurological: denies: headache, weakness, numbness, paresthesias Hematological/Lymphatic: denies: easy bleeding, easy bruising ED Past Medical Hx - Past Medical History Previous Medical History?: Yes Hx Hypertension: Yes (PIH) Hx Congestive Heart Failure: No Hx Diabetes: No Hx Deep Vein Thrombosis: No Hx Renal Disease: No Hx Sickle Cell Disease: No Hx Seizures: No (preeclampsia) Hx Asthma: No Hx COPD: No Hx HIV: No Additional medical history: Preeclampsia. 3 para 1 miscarriage 1 - Surgical History Additional Surgical History: tonsilectomy, leep procedure, tubes in ears, C- section x 1 - Social History Smoking Status: Current Every Day Smoker Substance Use Type: Alcohol - Medications Home Medications: Home Medications Medication Instructions Recorded Confirmed Last Taken Type Labetalol 300 mg PO Q8HR 07/17/16 07/17/16 1 Day Ago History Methyldopa [Aldomet] 500 mg PO BID 07/17/16 07/17/16 1 Day Ago History Docusate Sodium [Colace] 100 mg PO BID PRN #60 capsule 07/20/16 Unknown Rx Ibuprofen [Motrin] 800 mg PO Q8HR PRN #60 tablet 07/20/16 Unknown Rx Methyldopa [Aldomet] 500 mg PO TID #90 tablet 07/20/16 Unknown Rx Oxycodone HCl/Acetaminophen 1 each PO Q6HR PRN #45 tablet 07/20/16 Unknown Rx [Percocet 7.5/325 mg] NIFEdipine XL [Procardia Xl] 90 mg PO QDAY #30 tablet 07/23/16 Unknown Rx Nitrofurantoin [place]/M-Cryst 100 mg PO Q12HR #14 capsule 10/14/16 Unknown Rx [Macrobid CAP] ED Physical Exam - General Limitations: No Limitations General appearance: alert, in no apparent distress - Head Head exam: Present: atraumatic, normocephalic - Eye Eye exam: Present: normal appearance, PERRL, EOMI Pupils: Present: normal accommodation - ENT ENT exam: Present: normal exam, normal orophraynx, mucous membranes moist, TM's normal bilaterally, normal external ear exam - Expanded ENT Exam Expanded Mouth exam: Present: normal external inspection, tongue normal. Absent: drooling, trismus, muffled voice, tongue elevation, laceration Teeth exam: Present: normal inspection. Absent: dental caries, fractured tooth #, dental tenderness #, gingival enlargement Throat exam: Positive: normal inspection. Negative: tonsillar erythema, tonsillomegaly, tonsillar exudate, R peritonsillar mass, L peritonsillar mass - Neck Neck exam: Present: normal inspection, full ROM. Absent: tenderness, meningismus, lymphadenopathy, thyromegaly - Respiratory Respiratory exam: Present: normal lung sounds bilaterally. Absent: respiratory distress, wheezes, rales, rhonchi, stridor, accessory muscle use, decreased breath sounds - Cardiovascular Cardiovascular Exam: Present: regular rate, normal rhythm, normal heart sounds. Absent: bradycardia, tachycardia, irregular rhythm, systolic murmur, diastolic murmur, rubs, gallop - GI/Abdominal GI/Abdominal exam: Present: soft, tenderness (diffused abdominal tenderness), normal bowel sounds. Absent: distended, guarding, rebound, rigid, organomegaly (liver/spleen), mass, bruit, pulsatile mass - Expanded GI/Abdominal Exam Expanded GI/Abdominal exam: Absent: psoas sign, heel tap sign, Andersen's sign, Rovsing's sign, tenderness at [place]'s Point, ascites - Rectal Rectal exam: Present: deferred - Extremities Exam Extremities exam: Present: normal inspection, full ROM, normal capillary refill. Absent: tenderness, pedal edema, joint swelling, calf tenderness - Back Exam Back exam: Present: normal inspection, full ROM. Absent: tenderness, CVA tenderness (R), CVA tenderness (L), muscle spasm, paraspinal tenderness, vertebral tenderness, rash noted - Neurological Exam Neurological exam: Present: alert, oriented X3, CN II-XII intact, normal gait, reflexes normal. Absent: motor sensory deficit - Psychiatric Psychiatric exam: Present: normal affect, normal mood - Skin Skin exam: Present: warm, dry, intact. Absent: rash ED Course Vital Signs 10/14/16 09:33 Temperature 97.8 F Pulse Rate 66 Respiratory 18 Rate Blood Pressure 184/96 O2 Sat by Pulse 100 Oximetry - Reevaluation(s) Reevaluation #1: 10/14/16 13:13 Patient is laying in bed and watching TV with no signs of distress. ED Medical Decision Making - Lab Data Result diagrams: 10/14/16 13:54 10/14/16 13:54 - Medical Decision Making Ed course: This is a 36-year-old female that presents with medication reaction from amox and UTI 1- after my physical exam, due to patient c/o of abd tendnerss on palpation, CBC , BMP, Lip, Amylase, Hep panel, UA, test has been obtained. 2- CT abd/pelvis has also been obtained and patient was notified of CT findings. Pt denies any querstions about findings. 3- Patient was instrucetd to f/u with her PCP in 3-5 days or if symptoms worsen return back to the ED as soon as possible, 4- at time time of discharge, the patient does not seem toxic or ill in appearance. No acute signs of distress noted. Patient agrees to discharge treatment plan of care. No further questions noted by the patient. 5- patient was also instructed to finish full course of antibiotics as prescribed. 6- Ua indicates elvated WBC. Patient received macrobid at the time of d/c. ED Disposition Clinical Impression: Medication side effect Qualifiers: Encounter type: initial encounter Qualified Code(s): T88.7XXA - Unspecified adverse effect of drug or medicament, initial encounter UTI (urinary tract infection) Qualifiers: Urinary tract infection type: site unspecified Hematuria presence: without hematuria Qualified Code(s): N39.0 - Urinary tract infection, site not specified Disposition: DC-01 TO HOME OR SELFCARE Is pt being admited?: No Does the pt Need Aspirin: No Condition: Stable Instructions: Amoxicillin (By mouth), Nitrofurantoin Combination (By mouth), Urinary Tract Infection in Women (ED) Additional Instructions: Follow-up with her primary care doctor 3-5 days or symptoms worsen return back to emergency room as soon as possible Continue taking antibiotics as prescribed if it is full course as directed by her primary care doctor/dentist. Prescriptions: Nitrofurantoin [place]/M-Cryst [Macrobid CAP] 100 mg PO Q12HR #14 capsule Referrals: PRIMARY CARE, [Primary Care Provider] - 3-5 Days CATHI HARRISON JR, MD [Staff Physician] - 3-5 Days [facility] [Outside] - 3-5 Days [facility] [Outside] - 3-5 Days Forms: Work/School Release Form(ED) This documentation as recorded by the MADINA tate JASMINE,accurately reflects the service I personally performed and the decisions made by ,MIREILLE WHALEY, [employer]CE[employer] EX[employer] AGENT.
== END 2016-10-14 16:05 | disposition home or self-care (01) ==
LOC: ED 09:27
DX: T88.7XXA Unspecified adverse effect of drug or medicament, initial encounter (principal); N39.0 Urinary tract infection, site not specified; F17.200 Nicotine dependence, unspecified, uncomplicated; I10 Essential (primary) hypertension; Z91.013 Allergy to seafood; Z88.8 Allergy status to other drugs, medicaments and biological substances
CPT/HCPCS: 36415; 74177; 80048; 80074; 81001; 82150; 83690; 84703; 85025; 99284; Q9967

== ENCOUNTER 2018-09-15 11:00 | Outpatient (CLI) | payer MEDICAID | END 2018-09-15 11:01 | disposition home or self-care (01) | LOC: SLR 11:00 | PROVIDERS: ATTEND Otolaryngology | DX: G47.33 Obstructive sleep apnea (adult) (pediatric) (principal); R40.0 Somnolence; R06.83 Snoring; E66.9 Obesity, unspecified | CPT/HCPCS: 95811 ==

== ENCOUNTER 2019-03-07 12:22 | Emergency (ER) | payer MEDICAID ==
--- NOTE | 2019-03-07 12:43 | Event Note ---
ED Screening Note ED Screening Note: lightheaded at work today 200 systolic when she had it taken at work generalized weakness no KAHN, no vision changes, no numbness, no unilateral weakness states that she is on propranolol 40 mg daily, states she has not taken in a week +smoker PMHx HTN, PCOS allergy: lisinopril, shellfish This initial assessment/diagnostic orders/clinical plan/treatment(s) is/are subject to change based on patients health status, clinical progression and re- assessment by fellow clinical providers in the ED. Further treatment and workup at subsequent clinical providers discretion. Patient/guardian urged not to elope from the ED as their condition may be serious if not clinically assessed and managed. Initial orders include: labs
[2019-03-07 13:45] LABS: Basophils # (Auto) 0.1 K/mm3 (0.0-0.1); Basophils % (Auto) 0.7 % (0.0-1.8); Eosinophils # (Auto) 0.3 K/mm3 (0.0-0.4); Eosinophils % (Auto) 3.2 % (0.0-4.3); Hematocrit 37.4 % (30.3-42.9); Hemoglobin 12.2 gm/dl (10.1-14.3); Lymphocytes # (Auto) 2.4 K/mm3 (1.2-5.4); Lymphocytes % (Auto) 26.6 % (13.4-35.0); Mean Corpuscular HGB Conc 33 % (30-34); Mean Corpuscular Volume 74 fl (79-97); Monocytes # (Auto) 0.5 K/mm3 (0.0-0.8); Monocytes % (Auto) 5.5 % (0.0-7.3); Platelet Count 276 K/mm3 (140-440); Red Blood Count 5.02 M/mm3 (3.65-5.03); Red Cell Distribution Width 16.1 % (13.2-15.2)
[2019-03-07] MEDS ORDERED: cloNIDine 0.1 MG TAB PO ONE (13:54)
--- NOTE | 2019-03-07 13:59 | Emergency Department Report ---
ED General Adult HPI - General Chief complaint: High BP Stated complaint: ELEVATED B/P Time Seen by Provider: 03/07/19 12:40 Source: patient Mode of arrival: Ambulatory Limitations: No Limitations - History of Present Illness Initial comments: Patient is 39 years old female with history of hypertension on propranolol 40 mg. Patient is noncompliant with her medication. Patient presented to the ER complaining off mild dizziness and elevated blood pressure. Patient pressure in the ER is 194/104. Patient denied any headache, neck pain, chest pain, s hortness of breath, weakness numbness or tingling sensation. Severity scale (0 -10): 0 - Related Data Home Medications Medication Instructions Recorded Confirmed Last Taken Labetalol 300 mg PO Q8HR 07/17/16 07/17/16 1 Day Ago ~07/16/16 Methyldopa [Aldomet] 500 mg PO BID 07/17/16 07/17/16 1 Day Ago ~07/16/16 Previous Rx's Medication Instructions Recorded Last Taken Type Docusate Sodium [Colace] 100 mg PO BID PRN #60 capsule 07/20/16 Unknown Rx Ibuprofen [Motrin] 800 mg PO Q8HR PRN #60 tablet 07/20/16 Unknown Rx Methyldopa [Aldomet] 500 mg PO TID #90 tablet 07/20/16 Unknown Rx Oxycodone HCl/Acetaminophen 1 each PO Q6HR PRN #45 tablet 07/20/16 Unknown Rx [Percocet 7.5/325 mg] NIFEdipine XL [Procardia Xl] 90 mg PO QDAY #30 tablet 07/23/16 Unknown Rx Nitrofurantoin [place]/M-Cryst 100 mg PO Q12HR #14 capsule 10/14/16 Unknown Rx [Macrobid CAP] Allergies Allergy/AdvReac Type Severity Reaction Status Date / Time lisinopril Allergy Severe Angioedema Verified 09/30/14 08:57 shellfish derived Allergy Swelling Verified 01/03/13 16:41 ED Review of Systems ROS: Stated complaint: ELEVATED B/P Other details as noted in HPI Comment: All other systems reviewed and negative Constitutional: denies: chills, fever Respiratory: denies: cough, shortness of breath, SOB with exertion, wheezing Cardiovascular: denies: chest pain, palpitations Gastrointestinal: denies: abdominal pain, nausea Musculoskeletal: denies: back pain Neurological: denies: headache, weakness, numbness, paresthesias, confusion, abnormal gait ED Past Medical Hx - Past Medical History Hx Hypertension: Yes (PIH) Hx Congestive Heart Failure: No Hx Diabetes: No Hx Deep Vein Thrombosis: No Hx Renal Disease: No Hx Sickle Cell Disease: No Hx Seizures: No (preeclampsia) Hx Asthma: No Hx COPD: No Hx HIV: No Additional medical history: Preeclampsia. 3 para 1 miscarriage 1 - Surgical History Additional Surgical History: tonsilectomy, leep procedure, tubes in ears, C- section x 1 - Social History Smoking Status: Current Every Day Smoker Substance Use Type: Alcohol - Medications Home Medications: Home Medications Medication Instructions Recorded Confirmed Last Taken Type Labetalol 300 mg PO Q8HR 07/17/16 07/17/16 1 Day Ago History ~07/16/16 Methyldopa [Aldomet] 500 mg PO BID 07/17/16 07/17/16 1 Day Ago History ~07/16/16 Docusate Sodium [Colace] 100 mg PO BID PRN #60 capsule 07/20/16 Unknown Rx Ibuprofen [Motrin] 800 mg PO Q8HR PRN #60 tablet 07/20/16 Unknown Rx Methyldopa [Aldomet] 500 mg PO TID #90 tablet 07/20/16 Unknown Rx Oxycodone HCl/Acetaminophen 1 each PO Q6HR PRN #45 tablet 07/20/16 Unknown Rx [Percocet 7.5/325 mg] NIFEdipine XL [Procardia Xl] 90 mg PO QDAY #30 tablet 07/23/16 Unknown Rx Nitrofurantoin [place]/M-Cryst 100 mg PO Q12HR #14 capsule 10/14/16 Unknown Rx [Macrobid CAP] ED Physical Exam - General Limitations: No Limitations General appearance: alert, in no apparent distress - Head Head exam: Present: atraumatic, normocephalic, normal inspection - Eye Eye exam: Present: normal appearance, PERRL - ENT ENT exam: Present: normal exam, normal orophraynx, mucous membranes moist - Neck Neck exam: Present: normal inspection, full ROM. Absent: tenderness, meningismus, lymphadenopathy, thyromegaly - Respiratory Respiratory exam: Present: normal lung sounds bilaterally - Cardiovascular Cardiovascular Exam: Present: regular rate, normal rhythm, normal heart sounds - GI/Abdominal GI/Abdominal exam: Present: soft, normal bowel sounds. Absent: distended, tenderness, guarding, rebound, rigid, organomegaly, mass, bruit, pulsatile mass, hernia - Extremities Exam Extremities exam: Present: normal inspection, full ROM, normal capillary refill. Absent: tenderness, pedal edema, joint swelling, calf tenderness - Back Exam Back exam: Present: normal inspection, full ROM. Absent: CVA tenderness (R), CVA tenderness (L), muscle spasm, paraspinal tenderness, vertebral tenderness - Neurological Exam Neurological exam: Present: alert, oriented X3, CN II-XII intact, normal gait, reflexes normal. Absent: abnormal gait, motor sensory deficit - Psychiatric Psychiatric exam: Present: normal mood - Skin Skin exam: Present: warm, intact, normal color ED Course Vital Signs 03/07/19 03/07/19 03/07/19 12:30 13:38 13:41 Temperature 98.4 F Pulse Rate 83 78 77 Respiratory 19 15 18 Rate Blood Pressure 194/104 Blood Pressure 200/96 [Left] O2 Sat by Pulse 98 98 Oximetry 03/07/19 03/07/19 03/07/19 13:45 13:57 14:00 Temperature Pulse Rate 73 71 69 Respiratory 13 13 Rate Blood Pressure 198/103 198/103 198/103 Blood Pressure [Left] O2 Sat by Pulse 98 100 Oximetry 03/07/19 03/07/19 14:15 14:31 Temperature Pulse Rate 69 65 Respiratory 13 13 Rate Blood Pressure 200/98 179/82 Blood Pressure [Left] O2 Sat by Pulse 99 99 Oximetry ED Medical Decision Making - Lab Data Result diagrams: 03/07/19 13:20 03/07/19 13:20 - Medical Decision Making Patient is 39 years old female with history of hypertension on propranolol 40 mg. Patient is noncompliant with her medication. Patient presented to the ER complaining off mild dizziness and elevated blood pressure. Patient pressure in the ER is 194/104. Patient denied any headache, neck pain, chest pain, shortness of breath, weakness numbness or tingling sensation. Patient remained asymptomatic in the ER. Labs reviewed and is unremarkable. Patient received clonidine 0.2 mg blood pressure improved significantly. Patient given a prescription for Norvasc 5 mg and hydrochlorothiazide 25 mg and advised to follow-up with her primary care physician in the next 2-3 days and to attend to the ER if symptoms are not improved. Critical care attestation.: If time is entered above; I have spent that time in minutes in the direct care of this critically ill patient, excluding procedure time. ED Disposition Clinical Impression: Dizziness, Malignant hypertension Disposition: DC-01 TO HOME OR SELFCARE Is pt being admited?: No Condition: Stable Instructions: Hypertension (ED), Dizziness (ED) Referrals: [facility] [Provider Group] - 3-5 Days
[2019-03-07 14:02] LABS: BUN/Creatinine Ratio 12; Blood Urea Nitrogen 11 mg/dL (7-17); Calcium 9.4 mg/dL (8.4-10.2); Hemolysis Index 8
[2019-03-07 15:04] VITALS: BP 165/98
== END 2019-03-07 15:05 | disposition home or self-care (01) ==
LOC: ED 12:22
DX: I10 Essential (primary) hypertension (principal); R42 Dizziness and giddiness; F17.200 Nicotine dependence, unspecified, uncomplicated
CPT/HCPCS: 36415; 80048; 85025; 99283

== ENCOUNTER 2019-11-27 17:20 | Emergency (ER) | payer MEDICAID ==
[2019-11-27 17:32] VITALS: BP 161/99
--- NOTE | 2019-11-27 18:02 | XRay Report ---
CLINICAL DATA: pain after fall TECHNICAL DATA: Four views of the ankle were obtained in the AP, lateral, and obliques. FINDINGS: There is no acute fracture, dislocation, or subluxation. There is no joint effusion and moderate soft tissue swelling is present. The tibial plafond, ankle mortise, and talar dome are intact. IMPRESSION: Soft tissue injury Signer Name: Pedro Luis Apodaca MD Signed: 11/27/2019 5:57 PM Workstation Name: [id number]
[2019-11-28] MEDS ORDERED: HYDROcodone/ACETAMINOPHEN 5-325 MG TAB PO ONE (00:16)
--- NOTE | 2019-11-28 01:03 | Emergency Department Report ---
ED Lower Extremity HPI - General Chief Complaint: Extremity Injury, Lower Stated Complaint: HURT ANKLE Time Seen by Provider: 11/28/19 00:11 Source: patient Mode of arrival: Wheelchair Limitations: No Limitations - History of Present Illness Initial Comments: Patient is a 39-year-old -[place] female who presents for right ankle pain and swelling status post fall this afternoon. States she missed the last step coming down and fell twisting her ankle. Now with 5/10 ankle pain and swelling. There is no abrasion laceration or bleeding. There is moderate swelling there is no deformity. Patient advises unable to bear weight. Symptoms are exacerbated by attempted weightbearing. Symptoms are relieved by offloading and rest. MD Complaint: ankle injury Onset/Timin -: hour(s) Injury: Ankle: Right Type of Injury: eversion Place: home Severity: moderate Severity scale (0 -10): 5 Improves With: rest Worsens With: weight bearing, movement, palpation Context: fall Associated Symptoms: snap/pop sensation, swelling, tingling, unable to bear weight. denies: numbness - Related Data Home Medications Medication Instructions Recorded Confirmed Last Taken Labetalol 300 mg PO Q8HR 07/17/16 07/17/16 1 Day Ago ~07/16/16 Methyldopa [Aldomet] 500 mg PO BID 07/17/16 07/17/16 1 Day Ago ~07/16/16 Previous Rx's Medication Instructions Recorded Last Taken Type Docusate Sodium [Colace] 100 mg PO BID PRN #60 capsule 07/20/16 Unknown Rx Ibuprofen [Motrin] 800 mg PO Q8HR PRN #60 tablet 07/20/16 Unknown Rx Methyldopa [Aldomet] 500 mg PO TID #90 tablet 07/20/16 Unknown Rx Oxycodone HCl/Acetaminophen 1 each PO Q6HR PRN #45 tablet 07/20/16 Unknown Rx [Percocet 7.5/325 mg] NIFEdipine XL [Procardia Xl] 90 mg PO QDAY #30 tablet 07/23/16 Unknown Rx Nitrofurantoin [place]/M-Cryst 100 mg PO Q12HR #14 capsule 10/14/16 Unknown Rx [Macrobid CAP] amLODIPine [Norvasc] 5 mg PO DAILY #30 tab 03/07/19 Unknown Rx hydroCHLOROthiazide [HCTZ] 25 mg PO QDAY #30 tablet 03/07/19 Unknown Rx Naproxen 500 mg PO BID PRN #30 tablet 11/28/19 Unknown Rx Allergies Allergy/AdvReac Type Severity Reaction Status Date / Time lisinopril Allergy Severe Angioedema Verified 09/30/14 08:57 shellfish derived Allergy Swelling Verified 01/03/13 16:41 ED Review of Systems ROS: Stated complaint: HURT ANKLE Other details as noted in HPI Constitutional: denies: chills, fever Eyes: denies: eye pain, eye discharge, vision change ENT: denies: ear pain, throat pain Respiratory: denies: cough, shortness of breath, wheezing Cardiovascular: denies: chest pain, palpitations Endocrine: no symptoms reported Gastrointestinal: denies: abdominal pain, nausea, diarrhea Genitourinary: denies: urgency, dysuria, discharge Musculoskeletal: joint swelling Skin: denies: rash, lesions Neurological: denies: headache, weakness, paresthesias Psychiatric: denies: anxiety, depression Hematological/Lymphatic: denies: easy bleeding, easy bruising ED Past Medical Hx - Past Medical History Previous Medical History?: Yes Hx Hypertension: Yes (PIH) Hx Congestive Heart Failure: No Hx Diabetes: No Hx Deep Vein Thrombosis: No Hx Renal Disease: No Hx Sickle Cell Disease: No Hx Seizures: (preeclampsia) Hx Asthma: Yes Hx COPD: No Hx HIV: No Additional medical history: Preeclampsia. 3 para 1 miscarriage 1 - Surgical History Past Surgical History?: Yes Additional Surgical History: tonsilectomy, leep procedure, tubes in ears, C- section x 1 - Social History Smoking Status: Never Smoker Substance Use Type: None - Medications Home Medications: Home Medications Medication Instructions Recorded Confirmed Last Taken Type Labetalol 300 mg PO Q8HR 07/17/16 07/17/16 1 Day Ago History ~07/16/16 Methyldopa [Aldomet] 500 mg PO BID 07/17/16 07/17/16 1 Day Ago History ~07/16/16 Docusate Sodium [Colace] 100 mg PO BID PRN #60 capsule 07/20/16 Unknown Rx Ibuprofen [Motrin] 800 mg PO Q8HR PRN #60 tablet 07/20/16 Unknown Rx Methyldopa [Aldomet] 500 mg PO TID #90 tablet 07/20/16 Unknown Rx Oxycodone HCl/Acetaminophen 1 each PO Q6HR PRN #45 tablet 07/20/16 Unknown Rx [Percocet 7.5/325 mg] NIFEdipine XL [Procardia Xl] 90 mg PO QDAY #30 tablet 07/23/16 Unknown Rx Nitrofurantoin [place]/M-Cryst 100 mg PO Q12HR #14 capsule 10/14/16 Unknown Rx [Macrobid CAP] amLODIPine [Norvasc] 5 mg PO DAILY #30 tab 03/07/19 Unknown Rx hydroCHLOROthiazide [HCTZ] 25 mg PO QDAY #30 tablet 03/07/19 Unknown Rx Naproxen 500 mg PO BID PRN #30 tablet 11/28/19 Unknown Rx ED Physical Exam - General Limitations: No Limitations General appearance: alert, in no apparent distress - Head Head exam: Present: atraumatic, normocephalic, normal inspection - Eye Eye exam: Present: normal appearance, PERRL, EOMI Pupils: Present: normal accommodation - ENT ENT exam: Present: normal orophraynx, mucous membranes moist, TM's normal bilaterally - Neck Neck exam: Present: normal inspection, full ROM. Absent: tenderness - Respiratory Respiratory exam: Present: normal lung sounds bilaterally. Absent: respiratory distress, wheezes, stridor, chest wall tenderness - Cardiovascular Cardiovascular Exam: Present: regular rate, normal rhythm, normal heart sounds. Absent: systolic murmur, diastolic murmur, rubs, gallop - GI/Abdominal GI/Abdominal exam: Present: soft, normal bowel sounds. Absent: distended, tenderness, guarding, rebound, rigid, bruit, hernia - Rectal Rectal exam: Present: deferred - Extremities Exam Extremities exam: Present: normal inspection, tenderness, joint swelling - Expanded Lower Extremity Exam Right Ankle exam: Present: tenderness, swelling. Absent: abrasion, laceration, ecchymosis, deformity, crepidus, dislocation, erythema, anterior draw sign Foot/Toe exam: Present: full ROM. Absent: tenderness Neuro vascular tendon exam: Absent: pulse deficit, motor deficit, sensory deficit, tendon deficit Gait: Positive: unable to bear weight - Back Exam Back exam: Present: normal inspection, full ROM. Absent: tenderness, CVA tenderness (R), CVA tenderness (L) - Neurological Exam Neurological exam: Present: alert, oriented X3, CN II-XII intact, reflexes normal. Absent: motor sensory deficit - Psychiatric Psychiatric exam: Present: normal affect, normal mood - Skin Skin exam: Present: warm, dry, intact, normal color. Absent: rash ED Course Vital Signs 11/27/19 17:27 Temperature 98.3 F Pulse Rate 94 H Respiratory 18 Rate Blood Pressure 161/99 O2 Sat by Pulse 97 Oximetry ED Lower Extremity MDM - Radiology Data Radiology results: report reviewed, image reviewed Findings Reporting MD: Pedro Luis Apodaca Dictation Time: November 27, 2019 16:57 Line Up Worker: Not available Drafting Supervisor Date: CLINICAL DATA: pain after fall TECHNICAL DATA: Four views of the ankle were obtained in the AP, lateral, and obliques. FINDINGS: There is no acute fracture, dislocation, or subluxation. There is no joint effusion and moderate soft tissue swelling is present. The tibial plafond, ankle mortise, and talar dome are intact. IMPRESSION: Soft tissue injury Signer Name: Pedro Luis Apodaca MD Signed: 11/27/2019 4:57 PM Workstation Name: [id number] - Medical Decision Making xray neg for fracture, plan tx for Ankle sprain right, splint , crutches, rice therapy , pain is improved with medication given in ed, pt dc'd at this time, pt will follow up with pcp in 2-3 days. pt demonstration not ad appropriate. Critical care attestation.: If time is entered above; I have spent that time in minutes in the direct care of this critically ill patient, excluding procedure time. ED Disposition Clinical Impression: Ankle sprain Qualifiers: Encounter type: initial encounter Involved ligament of ankle: unspecified ligament Laterality: right Qualified Code(s): S93.401A - Sprain of unspecified ligament of right ankle, initial encounter Right wrist fracture Qualifiers: Encounter type: initial encounter Fracture type: closed Qualified Code(s): S62.101A - Fracture of unspecified carpal bone, right wrist, initial encounter for closed fracture Disposition: DC-01 TO HOME OR SELFCARE Is pt being admited?: No Does the pt Need Aspirin: No Condition: Stable Instructions: Ankle Stirrup Splint (ED), Ankle Exercises (GEN), Ankle Sprain (ED) Prescriptions: Naproxen 500 mg PO BID PRN #30 tablet PRN Reason: N/V If Npo And No Iv Access Referrals: JEANNETTE PHILLIPS MD [Staff Physician] - 3-5 Days Forms: Work/School Release Form(ED) Time of Disposition: 01:24
== END 2019-11-28 02:37 | disposition home or self-care (01) ==
LOC: ED 17:20
DX: S93.401A Sprain of unspecified ligament of right ankle, initial encounter (principal); S62.101A Fracture of unspecified carpal bone, right wrist, initial encounter for closed fracture; I10 Essential (primary) hypertension; J45.909 Unspecified asthma, uncomplicated; F17.200 Nicotine dependence, unspecified, uncomplicated; Z79.899 Other long term (current) drug therapy; Z91.013 Allergy to seafood; Z88.8 Allergy status to other drugs, medicaments and biological substances; W10.9XXA Fall (on) (from) unspecified stairs and steps, initial encounter; Y93.89 Activity, other specified; Y92.89 Other specified places as the place of occurrence of the external cause; Y99.8 Other external cause status

== ENCOUNTER 2020-03-17 19:20 | Emergency (ER) | payer MEDICAID ==
--- NOTE | 2020-03-17 20:03 | Event Note ---
ED Screening Note Date of service: 03/17/20 Time: 20:02 ED Screening Note: Complains of sudden onset of left arm numbness down to the hands x2 days History of hypertension Denies injury, neck pain, headache, or chest pain Patient states she is unable to feel any when I pinch her forearm on exam This initial assessment/diagnostic orders/clinical plan/treatment(s) is/are subject to change based on patients health status, clinical progression and re- assessment by fellow clinical providers in the ED. Further treatment and workup at subsequent clinical providers discretion. Patient/guardian urged not to elope from the ED as their condition may be serious if not clinically assessed and managed. Initial orders include: Labs X-ray
[2020-03-17 20:08] VITALS: BP 147/80
[2020-03-17 20:30] LABS: Basophils # (Auto) 0.2 K/mm3 (0.0-0.1); Basophils % (Auto) 1.6 % (0.0-1.8); Eosinophils # (Auto) 0.5 K/mm3 (0.0-0.4); Eosinophils % (Auto) 5.5 % (0.0-4.3); Hematocrit 40.7 % (30.3-42.9); Hemoglobin 13.4 gm/dl (10.1-14.3); Lymphocytes # (Auto) 2.5 K/mm3 (1.2-5.4); Mean Corpuscular HGB Conc 33 % (30-34); Mean Corpuscular Volume 72 fl (79-97); Monocytes # (Auto) 0.6 K/mm3 (0.0-0.8); Monocytes % (Auto) 6.3 % (0.0-7.3); Platelet Count 385 K/mm3 (140-440); Red Blood Count 5.64 M/mm3 (3.65-5.03); Red Cell Distribution Width 16.7 % (13.2-15.2)
--- NOTE | 2020-03-17 20:41 | XRay Report ---
XR elbow 3+V LT INDICATION / CLINICAL INFORMATION: acute forearm numbness, no injury. COMPARISON: None available. FINDINGS: No acute fracture. Normal alignment. Joint spaces are preserved. No destructive osseous lesion or s uspicious periosteal reaction. Impression: 1.No significant osseous abnormality. Signer Name: Ernesto Donahue MD Signed: 03/17/2020 8:37 PM Workstation Name: [id number]
[2020-03-17 20:48] LABS: Alanine Aminotransferase 27 units/L (7-56); Albumin 4.1 g/dL (3.9-5); BUN/Creatinine Ratio 7; Blood Urea Nitrogen 7 mg/dL (7-17); Calcium 9.6 mg/dL (8.4-10.2); Hemolysis Index 16
[2020-03-17] MEDS ORDERED: traMADol 50 MG TAB PO ONE (22:35)
[2020-03-17] MEDS ORDERED: predniSONE 20 MG TAB PO ONE (22:35)
--- NOTE | 2020-03-17 22:57 | Emergency Department Report ---
ED General Adult HPI - General Chief complaint: Neuro Symptoms/Deficit Stated complaint: LEFT ARM NUMBNESS Time Seen by Provider: 03/17/20 20:01 Source: patient Mode of arrival: Ambulatory Limitations: No Limitations - History of Present Illness Initial comments: Pt complains of sudden onset of left arm numbness down to the hands x2 days , pt has hx of hypertension, she denies injury, neck pain, headache, or chest pain, no sob, no dizziness, no light headedness, no n/v, no diaphoresis. pt works in [employer] and repetitive moves 8-10 hrs daily. pain is described as burning tingling radiating from elbow to finger tips. Pain is reproducible to deep palpation and exacerbated by palpation, pain is relieved by rest. There is no paralysis, no weakness, mild swelling. - Related Data Home Medications Medication Instructions Recorded Confirmed Last Taken Labetalol 300 mg PO Q8HR 07/17/16 07/17/16 1 Day Ago ~07/16/16 Methyldopa (Nf) [Aldomet] 500 mg PO BID 07/17/16 07/17/16 1 Day Ago ~07/16/16 Previous Rx's Medication Instructions Recorded Last Taken Type Docusate Sodium [Colace] 100 mg PO BID PRN #60 capsule 07/20/16 Unknown Rx Ibuprofen [Motrin] 800 mg PO Q8HR PRN #60 tablet 07/20/16 Unknown Rx Methyldopa (Nf) [Aldomet] 500 mg PO TID #90 tablet 07/20/16 Unknown Rx Oxycodone HCl/Acetaminophen 1 each PO Q6HR PRN #45 tablet 07/20/16 Unknown Rx [Percocet 7.5/325 mg] NIFEdipine XL [Procardia Xl] 90 mg PO QDAY #30 tablet 07/23/16 Unknown Rx Nitrofurantoin [place]/M-Cryst 100 mg PO Q12HR #14 capsule 10/14/16 Unknown Rx [Macrobid CAP] amLODIPine [Norvasc] 5 mg PO DAILY #30 tab 03/07/19 Unknown Rx hydroCHLOROthiazide [HCTZ] 25 mg PO QDAY #30 tablet 03/07/19 Unknown Rx Naproxen 500 mg PO BID PRN #30 tablet 11/28/19 Unknown Rx Capsaicin 1 applicatio TP TID PRN #1 tube 03/17/20 Unknown Rx Naproxen 500 mg PO BID PRN #30 tablet 03/17/20 Unknown Rx predniSONE [Deltasone] 40 mg PO QDAY 5 Days #10 tab 03/17/20 Unknown Rx Allergies Allergy/AdvReac Type Severity Reaction Status Date / Time lisinopril Allergy Severe Angioedema Verified 09/30/14 08:57 shellfish derived Allergy Swelling Verified 01/03/13 16:41 ED Review of Systems ROS: Stated complaint: LEFT ARM NUMBNESS Other details as noted in HPI Constitutional: denies: chills, fever Eyes: denies: eye pain, eye discharge, vision change ENT: denies: ear pain, throat pain Respiratory: denies: cough, shortness of breath, wheezing Cardiovascular: denies: chest pain, palpitations Endocrine: no symptoms reported Gastrointestinal: denies: abdominal pain, nausea, diarrhea Genitourinary: denies: urgency, dysuria, discharge Musculoskeletal: myalgia ( left forearm ) Skin: denies: rash, lesions Neurological: numbness (tingling left upper extrem ). denies: headache, weakness, paresthesias, confusion, vertigo Psychiatric: denies: anxiety, depression Hematological/Lymphatic: denies: easy bleeding, easy bruising ED Past Medical Hx - Past Medical History Previous Medical History?: Yes Hx Hypertension: Yes (PIH) Hx Congestive Heart Failure: No Hx Diabetes: No Hx Deep Vein Thrombosis: No Hx Renal Disease: No Hx Sickle Cell Disease: No Hx Seizures: (preeclampsia) Hx Asthma: Yes Hx COPD: No Hx HIV: No Additional medical history: Preeclampsia, PCOS - Surgical History Past Surgical History?: Yes Additional Surgical History: tonsilectomy, leep procedure, tubes in ears, C- section x 1 - Social History Smoking Status: Current Every Day Smoker Substance Use Type: None - Medications Home Medications: Home Medications Medication Instructions Recorded Confirmed Last Taken Type Labetalol 300 mg PO Q8HR 07/17/16 07/17/16 1 Day Ago History ~07/16/16 Methyldopa (Nf) [Aldomet] 500 mg PO BID 07/17/16 07/17/16 1 Day Ago History ~07/16/16 Docusate Sodium [Colace] 100 mg PO BID PRN #60 capsule 07/20/16 Unknown Rx Ibuprofen [Motrin] 800 mg PO Q8HR PRN #60 tablet 07/20/16 Unknown Rx Methyldopa (Nf) [Aldomet] 500 mg PO TID #90 tablet 07/20/16 Unknown Rx Oxycodone HCl/Acetaminophen 1 each PO Q6HR PRN #45 tablet 07/20/16 Unknown Rx [Percocet 7.5/325 mg] NIFEdipine XL [Procardia Xl] 90 mg PO QDAY #30 tablet 07/23/16 Unknown Rx Nitrofurantoin [place]/M-Cryst 100 mg PO Q12HR #14 capsule 10/14/16 Unknown Rx [Macrobid CAP] amLODIPine [Norvasc] 5 mg PO DAILY #30 tab 03/07/19 Unknown Rx hydroCHLOROthiazide [HCTZ] 25 mg PO QDAY #30 tablet 03/07/19 Unknown Rx Naproxen 500 mg PO BID PRN #30 tablet 11/28/19 Unknown Rx Capsaicin 1 applicatio TP TID PRN #1 tube 03/17/20 Unknown Rx Naproxen 500 mg PO BID PRN #30 tablet 03/17/20 Unknown Rx predniSONE [Deltasone] 40 mg PO QDAY 5 Days #10 tab 03/17/20 Unknown Rx ED Physical Exam - General Limitations: No Limitations General appearance: alert, in no apparent distress - Head Head exam: Present: normocephalic, normal inspection - Eye Eye exam: Present: normal appearance, PERRL, EOMI Pupils: Present: normal accommodation - ENT ENT exam: Present: mucous membranes moist - Neck Neck exam: Present: normal inspection, full ROM. Absent: tenderness, meningismus - Expanded Neck Exam Expanded Neck exam: Absent: tenderness, midline deformity, anterior neck swelling, thyroid mass, carotid bruit, tracheal deviation - Respiratory Respiratory exam: Present: normal lung sounds bilaterally. Absent: respiratory distress, wheezes, stridor, chest wall tenderness - Cardiovascular Cardiovascular Exam: Present: regular rate, normal rhythm, normal heart sounds. Absent: systolic murmur, diastolic murmur, rubs, gallop - GI/Abdominal GI/Abdominal exam: Present: soft, normal bowel sounds. Absent: distended, tenderness - Rectal Rectal exam: Present: deferred - Extremities Exam Extremities exam: Present: full ROM, tenderness (left carpal region, ), normal capillary refill. Absent: joint swelling - Expanded Upper Extremity Exam Left Forearm Wrist exam: Present: full ROM, tenderness, other (pain with supination and pronation ). Absent: swelling, abrasion, laceration, ecchymosis, deformity, crepidus, dislocation, erythema, tenderness over anatomical snuff box, pain with axial thumb loading Hand Wrist exam: Present: full ROM. Absent: tenderness, swelling, abrasion, ecchymosis, crepidus Neuro motor exam: Present: wrist extension intact, thumb opposition intact, thumb IP flexion intact, thumb adduction intact, fingers 2-5 abduction intact Neurosensory exam: Present: radial nerve intact Vascular: Present: normal capillary refill - Back Exam Back exam: Present: normal inspection, full ROM. Absent: CVA tenderness (R), CVA tenderness (L), vertebral tenderness - Neurological Exam Neurological exam: Present: alert, oriented X3, CN II-XII intact, normal gait, reflexes normal. Absent: motor sensory deficit - Expanded Neurological Exam Expanded Patient oriented to: Present: person, place, time Speech: Present: fluid speech Sensory exam: Upper Extremity Light Touch: Normal, Upper Extremity Pin Prick: Normal, Upper Extremity Temperature: Normal, UE 2 Point Discrimination: Normal Motor strength exam: RUE: 5, LUE: 5 DTR: bicep (R): 2+, bicep (L): 2+, tricep (R): 2+, tricep (L): 2+ Best Eye Response ([place]): (4) open spontaneously Best Motor Response ([place]): (6) obeys commands Best Verbal Response ([place]): (5) oriented [place] Total: 15 - Psychiatric Psychiatric exam: Present: normal affect, normal mood - Skin Skin exam: Present: warm, dry, intact, normal color. Absent: rash ED Course Vital Signs 03/17/20 03/17/20 19:59 20:01 Temperature 97.8 F Pulse Rate 75 89 Respiratory 18 Rate Blood Pressure 147/80 O2 Sat by Pulse 76 L 100 Oximetry ED Medical Decision Making - Lab Data Result diagrams: 03/17/20 20:11 03/17/20 20:11 - Radiology Data Radiology results: report reviewed, image reviewed Findings Reporting MD: Ernesto Donahue Dictation Time: March 17, 2020 19:37 Lighting Fixture Installer: Not available Craps Dealer Date: XR elbow 3+V LT INDICATION / CLINICAL INFORMATION: acute forearm numbness, no injury. COMPARISON: None available. FINDINGS: No acute fracture. Normal alignment. Joint spaces are preserved. No destructive osseous lesion or suspicious periosteal reaction. Impression: 1.No significant osseous abnormality. Signer Name: Ernesto Donauhe MD Signed: 03/17/2020 7:37 PM Workstation Name: [email or web address] - Medical Decision Making There is reproducible pain to the carpal region radiating to left 1 and 2nd digit tingling. ROM intacty and unrestricted, Mild radial head tenderness. Pain with supination and pronation. Vault Cashier are equal. HARD METALS ENGRAVER HAND less than 3 seconds bilateral. No pain with simulated axial loading of left thumb. Xiphoid process pain. This is likely carpal tunnel. Plan NSAIDs, short burst steroids, forearm splint, follow-up with Ortho in 2 to 3 days. Patient verbalizes agreement and understanding with discharge plan. Patient DC'd home in stable condition at this time. Critical care attestation.: If time is entered above; I have spent that time in minutes in the direct care of this critically ill patient, excluding procedure time. ED Disposition Clinical Impression: Tennis elbow syndrome Qualifiers: Laterality: left Qualified Code(s): M77.12 - Lateral epicondylitis, left elbow Disposition: DC-01 TO HOME OR SELFCARE Is pt being admited?: No Does the pt Need Aspirin: No (Concerns) Condition: Stable Instructions: Hand Exercises Prescriptions: Capsaicin 1 applicatio TP TID PRN #1 tube PRN Reason: pain predniSONE [Deltasone] 40 mg PO QDAY 5 Days #10 tab Naproxen 500 mg PO BID PRN #30 tablet PRN Reason: pain Referrals: SADIE ALCOCER MD [Referring] - 3-5 Days Forms: Work/School Release Form(ED) Time of Disposition: 23:09
== END 2020-03-17 23:20 | disposition home or self-care (01) ==
LOC: ED 19:20
DX: M77.12 Lateral epicondylitis, left elbow (principal); I10 Essential (primary) hypertension; J45.909 Unspecified asthma, uncomplicated; F17.200 Nicotine dependence, unspecified, uncomplicated; Z90.89 Acquired absence of other organs; Z98.890 Other specified postprocedural states; Z79.899 Other long term (current) drug therapy; Z91.013 Allergy to seafood; Z88.8 Allergy status to other drugs, medicaments and biological substances
CPT/HCPCS: 29125; 36415; 73080; 80053; 84484; 85025; 99284; J7512

== ENCOUNTER 2021-03-16 16:53 | Emergency (ER) | payer MEDICAID ==
[2021-03-16] MEDS ORDERED: ONDANSETRON 4 MG/2 ML INJ IV ONE (18:02)
[2021-03-16] MEDS ORDERED: HYDROmorphone 1 MG/1 ML INJ IV ONE (18:02)
--- NOTE | 2021-03-16 18:06 | Emergency Department Report ---
ED General Adult HPI - General Chief complaint: Abdominal Pain Stated complaint: ABD PAIN Time Seen by Provider: 03/16/21 17:50 Source: patient Mode of arrival: Ambulatory Limitations: No Limitations - History of Present Illness Initial comments: Patient presents to the emergency department the chief complaint of lower abdominal pain and lower back pain that started on Saturday. Patient states the pain went away came back today. She describes the pain is sharp in nature. Patient denies any nausea vomiting or diarrhea. Patient also denies any chest pain. -: Sudden Location: abdomen Radiation: non-radiation Severity scale (0 -10): 5 Consistency: constant Improves with: none Worsens with: none Associated Symptoms: denies other symptoms Treatments Prior to Arrival: none - Related Data Home Medications Medication Instructions Recorded Confirmed Last Taken Labetalol 300 mg PO Q8HR 07/17/16 07/17/16 1 Day Ago ~07/16/16 Methyldopa (Nf) [Aldomet] 500 mg PO BID 07/17/16 07/17/16 1 Day Ago ~07/16/16 Previous Rx's Medication Instructions Recorded Last Taken Type Docusate Sodium [Colace] 100 mg PO BID PRN #60 capsule 07/20/16 Unknown Rx Ibuprofen [Motrin] 800 mg PO Q8HR PRN #60 tablet 07/20/16 Unknown Rx Methyldopa (Nf) [Aldomet] 500 mg PO TID #90 tablet 07/20/16 Unknown Rx Oxycodone HCl/Acetaminophen 1 each PO Q6HR PRN #45 tablet 07/20/16 Unknown Rx [Percocet 7.5/325 mg] NIFEdipine XL [Procardia Xl] 90 mg PO QDAY #30 tablet 07/23/16 Unknown Rx Nitrofurantoin [place]/M-Cryst 100 mg PO Q12HR #14 capsule 10/14/16 Unknown Rx [Macrobid CAP] amLODIPine [Norvasc] 5 mg PO DAILY #30 tab 03/07/19 Unknown Rx hydroCHLOROthiazide [HCTZ] 25 mg PO QDAY #30 tablet 03/07/19 Unknown Rx Naproxen 500 mg PO BID PRN #30 tablet 11/28/19 Unknown Rx Capsaicin 1 applicatio TP TID PRN #1 tube 03/17/20 Unknown Rx Naproxen 500 mg PO BID PRN #30 tablet 03/17/20 Unknown Rx predniSONE [Deltasone] 40 mg PO QDAY 5 Days #10 tab 03/17/20 Unknown Rx cephALEXin [Keflex] 500 mg PO Q6HR #28 capsule 03/16/21 Unknown Rx traMADoL [Ultram] 50 mg PO Q6HR PRN #24 tablet 03/16/21 Unknown Rx Allergies Allergy/AdvReac Type Severity Reaction Status Date / Time lisinopril Allergy Severe Angioedema Verified 09/30/14 08:57 shellfish derived Allergy Swelling Verified 01/03/13 16:41 ED Review of Systems ROS: Stated complaint: ABD PAIN Other details as noted in HPI Comment: All other systems reviewed and negative Constitutional: denies: chills, fever Eyes: denies: eye pain, eye discharge, vision change ENT: denies: ear pain, throat pain Respiratory: denies: cough, shortness of breath, wheezing Cardiovascular: denies: chest pain, palpitations Endocrine: no symptoms reported Gastrointestinal: abdominal pain. denies: nausea, diarrhea Genitourinary: denies: urgency, dysuria, discharge Musculoskeletal: denies: back pain, joint swelling, arthralgia Skin: denies: rash, lesions Neurological: denies: headache, weakness, paresthesias Psychiatric: denies: anxiety, depression Hematological/Lymphatic: denies: easy bleeding, easy bruising ED Past Medical Hx - Past Medical History Hx Hypertension: Yes (PIH) Hx Congestive Heart Failure: No Hx Diabetes: No Hx Deep Vein Thrombosis: No Hx Renal Disease: No Hx Sickle Cell Disease: No Hx Seizures: (preeclampsia) Hx Asthma: Yes Hx COPD: No Hx HIV: No Additional medical history: Preeclampsia, PCOS - Surgical History Additional Surgical History: tonsilectomy, leep procedure, tubes in ears, x 1 - Social History Smoking Status: Current Every Day Smoker Substance Use Type: None - Medications Home Medications: Home Medications Medication Instructions Recorded Confirmed Last Taken Type Labetalol 300 mg PO Q8HR 07/17/16 07/17/16 1 Day Ago History ~07/16/16 Methyldopa (Nf) [Aldomet] 500 mg PO BID 07/17/16 07/17/16 1 Day Ago History ~07/16/16 Docusate Sodium [Colace] 100 mg PO BID PRN #60 capsule 07/20/16 Unknown Rx Ibuprofen [Motrin] 800 mg PO Q8HR PRN #60 tablet 07/20/16 Unknown Rx Methyldopa (Nf) [Aldomet] 500 mg PO TID #90 tablet 07/20/16 Unknown Rx Oxycodone HCl/Acetaminophen 1 each PO Q6HR PRN #45 tablet 07/20/16 Unknown Rx [Percocet 7.5/325 mg] NIFEdipine XL [Procardia Xl] 90 mg PO QDAY #30 tablet 07/23/16 Unknown Rx Nitrofurantoin [place]/M-Cryst 100 mg PO Q12HR #14 capsule 10/14/16 Unknown Rx [Macrobid CAP] amLODIPine [Norvasc] 5 mg PO DAILY #30 tab 03/07/19 Unknown Rx hydroCHLOROthiazide [HCTZ] 25 mg PO QDAY #30 tablet 03/07/19 Unknown Rx Naproxen 500 mg PO BID PRN #30 tablet 11/28/19 Unknown Rx Capsaicin 1 applicatio TP TID PRN #1 tube 03/17/20 Unknown Rx Naproxen 500 mg PO BID PRN #30 tablet 03/17/20 Unknown Rx predniSONE [Deltasone] 40 mg PO QDAY 5 Days #10 tab 03/17/20 Unknown Rx cephALEXin [Keflex] 500 mg PO Q6HR #28 capsule 03/16/21 Unknown Rx traMADoL [Ultram] 50 mg PO Q6HR PRN #24 tablet 03/16/21 Unknown Rx ED Physical Exam - General Limitations: No Limitations General appearance: alert, in no apparent distress - Head Head exam: Present: atraumatic, normocephalic - Eye Eye exam: Present: normal appearance, PERRL, EOMI - ENT ENT exam: Present: mucous membranes moist - Neck Neck exam: Present: normal inspection - Respiratory Respiratory exam: Present: normal lung sounds bilaterally. Absent: respiratory distress - Cardiovascular Cardiovascular Exam: Present: regular rate, normal rhythm. Absent: systolic murmur, diastolic murmur, rubs, gallop - GI/Abdominal GI/Abdominal exam: Present: soft, tenderness, normal bowel sounds, other (Tenderness palpation suprapubic region). Absent: distended - Extremities Exam Extremities exam: Present: normal inspection - Back Exam Back exam: Present: normal inspection - Neurological Exam Neurological exam: Present: alert, oriented X3, CN II-XII intact. Absent: motor sensory deficit - Psychiatric Psychiatric exam: Present: normal affect, normal mood - Skin Skin exam: Present: warm, dry, intact, normal color. Absent: rash ED Course Vital Signs 03/16/21 16:56 Temperature 98.3 F Pulse Rate 76 Respiratory 16 Rate Blood Pressure 234/120 [Left] O2 Sat by Pulse 100 Oximetry ED Medical Decision Making - Lab Data Result diagrams: 03/16/21 18:07 03/16/21 18:07 Lab Results 03/16/21 03/16/21 03/16/21 Range/Units 18:07 18:07 18:07 WBC 9.7 (4.5-11.0) K/mm3 RBC 4.77 (3.65-5.03) M/mm3 Hgb 10.8 (10.1-14.3) gm/dl Hct 33.9 (30.3-42.9) % MCV 71 L (79-97) fl MCH 23 L (28-32) pg MCHC 32 (30-34) % RDW 17.0 H (13.2-15.2) % Plt Count 364 (140-440) K/mm3 Lymph % (Auto) 24.3 (13.4-35.0) % [place] % (Auto) 3.8 (0.0-7.3) % Eos % (Auto) 2.4 (0.0-4.3) % Baso % (Auto) 1.9 H (0.0-1.8) % Lymph # (Auto) 2.3 (1.2-5.4) K/mm3 [place] # (Auto) 0.4 (0.0-0.8) K/mm3 Eos # (Auto) 0.2 (0.0-0.4) K/mm3 Baso # (Auto) 0.2 H (0.0-0.1) K/mm3 Seg Neutrophils % 67.6 (40.0-70.0) % Seg Neutrophils # 6.5 (1.8-7.7) K/mm3 Sodium (137-145) mmol/L Potassium (3.6-5.0) mmol/L Chloride (98-107) mmol/L Carbon Dioxide (22-30) mmol/L Anion Gap mmol/L BUN (7-17) mg/dL Creatinine (0.6-1.2) mg/dL Estimated GFR ml/min BUN/Creatinine Ratio % Glucose (65-100) mg/dL Calcium (8.4-10.2) mg/dL Total Bilirubin (0.1-1.2) mg/dL AST (5-40) units/L ALT (7-56) units/L Alkaline Phosphatase (35-129) units/L Total Protein (6.3-8.2) g/dL Albumin (3.9-5) g/dL Albumin/Globulin Ratio % Lipase 25 (13-60) units/L HCG, Quant < 2 (0-4) mIU/mL Urine Color (Yellow) Urine Turbidity (Clear) Urine pH (5.0-7.0) Ur Specific Lyons (1.003-1.030) Urine Protein (Negative) mg/dL Urine Glucose (UA) (Negative) mg/dL Urine Ketones (Negative) mg/dL Urine Blood (Negative) Urine Nitrite (Negative) Urine Bilirubin (Negative) Urine Urobilinogen (<2.0) mg/dL Ur Leukocyte Esterase (Negative) Urine WBC (Auto) (0.0-6.0) /HPF Urine RBC (Auto) (0.0-6.0) /HPF Urine WBC Clumps /HPF Urine Mucus /HPF Urine Yeast (Budding) /HPF 03/16/21 03/16/21 Range/Units 18:07 Unknown WBC (4.5-11.0) K/mm3 RBC (3.65-5.03) M/mm3 Hgb (10.1-14.3) gm/dl Hct (30.3-42.9) % MCV (79-97) fl MCH (28-32) pg MCHC (30-34) % RDW (13.2-15.2) % Plt Count (140-440) K/mm3 Lymph % (Auto) (13.4-35.0) % Haywood % (Auto) (0.0-7.3) % Eos % (Auto) (0.0-4.3) % Baso % (Auto) (0.0-1.8) % Lymph # (Auto) (1.2-5.4) K/mm3 Haywood # (Auto) (0.0-0.8) K/mm3 Eos # (Auto) (0.0-0.4) K/mm3 Baso # (Auto) (0.0-0.1) K/mm3 Seg Neutrophils % (40.0-70.0) % Seg Neutrophils # (1.8-7.7) K/mm3 Sodium 141 (137-145) mmol/L Potassium 3.8 (3.6-5.0) mmol/L Chloride 105.7 (98-107) mmol/L Carbon Dioxide 21 L (22-30) mmol/L Anion Gap 18 mmol/L BUN 10 (7-17) mg/dL Creatinine 0.8 (0.6-1.2) mg/dL Estimated GFR > 60 ml/min BUN/Creatinine Ratio 13 % Glucose 112 H (65-100) mg/dL Calcium 8.9 (8.4-10.2) mg/dL Total Bilirubin 0.20 (0.1-1.2) mg/dL AST 23 (5-40) units/L ALT 14 (7-56) units/L Alkaline Phosphatase 98 (35-129) units/L Total Protein 7.3 (6.3-8.2) g/dL Albumin 3.9 (3.9-5) g/dL Albumin/Globulin Ratio 1.1 % Lipase (13-60) units/L HCG, Quant (0-4) mIU/mL Urine Color Red (Yellow) Urine Turbidity Cloudy (Clear) Urine pH 6.0 (5.0-7.0) Ur Specific Lyons 1.020 (1.003-1.030) Urine Protein 100 mg/dl (Negative) mg/dL Urine Glucose (UA) Neg (Negative) mg/dL Urine Ketones Neg (Negative) mg/dL Urine Blood Lg (Negative) Urine Nitrite Neg (Negative) Urine Bilirubin Neg (Negative) Urine Urobilinogen < 2.0 (<2.0) mg/dL Ur Leukocyte Esterase Neg (Negative) Urine WBC (Auto) > 182.0 H (0.0-6.0) /HPF Urine RBC (Auto) > 182.0 (0.0-6.0) /HPF Urine WBC Clumps 3+ /HPF Urine Mucus 1+ /HPF Urine Yeast (Budding) 2+ /HPF - Radiology Data Radiology results: report reviewed - Medical Decision Making Results discussed with patient Critical care attestation.: If time is entered above; I have spent that time in minutes in the direct care of this critically ill patient, excluding procedure time. ED Disposition Clinical Impression: Abdominal pain, UTI (urinary tract infection) Disposition: HOME / SELF CARE / HOMELESS Is pt being admited?: No Does the pt Need Aspirin: No Condition: Stable Instructions: Abdominal Pain (ED), Abdominal Pain, Adult, [id number], Urinary Tract Infection, Adult Additional Instructions: return if worse Prescriptions: cephALEXin [Keflex] 500 mg PO Q6HR #28 capsule traMADoL [Ultram] 50 mg PO Q6HR PRN #24 tablet PRN Reason: Pain Referrals: PRIMARY CAREMD [Primary Care Provider] - 3-5 Days BECCA MCCURDY MD [Staff Physician] - 3-5 Days Time of Disposition: 21:33
[2021-03-16 18:34] LABS: Basophils # (Auto) 0.2 K/mm3 (0.0-0.1); Basophils % (Auto) 1.9 % (0.0-1.8); Eosinophils # (Auto) 0.2 K/mm3 (0.0-0.4); Eosinophils % (Auto) 2.4 % (0.0-4.3); Hematocrit 33.9 % (30.3-42.9); Hemoglobin 10.8 gm/dl (10.1-14.3); Lymphocytes # (Auto) 2.3 K/mm3 (1.2-5.4); Lymphocytes % (Auto) 24.3 % (13.4-35.0); Mean Corpuscular HGB Conc 32 % (30-34); Mean Corpuscular Volume 71 fl (79-97); Monocytes # (Auto) 0.4 K/mm3 (0.0-0.8); Monocytes % (Auto) 3.8 % (0.0-7.3); Platelet Count 364 K/mm3 (140-440); Red Blood Count 4.77 M/mm3 (3.65-5.03)
[2021-03-16 18:44] LABS: Alanine Aminotransferase 14 units/L (7-56); Albumin 3.9 g/dL (3.9-5); BUN/Creatinine Ratio 13; Blood Urea Nitrogen 10 mg/dL (7-17); Calcium 8.9 mg/dL (8.4-10.2); Hemolysis Index 42
--- NOTE | 2021-03-16 20:12 | Cat Scan Report ---
CT abdomen pelvis wo con INDICATION: Abdominal Pain. TECHNIQUE: All CT scans at this location are performed using CT dose reduction for ALARA by means of automated e xposure control. COMPARISON: Prior CT on 10/14/2016 FINDINGS: The visualized lung bases are clear. The liver, gallbladder, spleen, adrenal glands, pancreas, and kidneys demonstrate no acute findings. There are no acute bowel abnormalities. The appendix is normal. There are no suspicious pelvic masses . There is no abdominal or pelvic adenopathy. The visualized osseous structures demonstrate no acute findings. IMPRESSION: 1. No acute findings. Signer Name: Gregg Fall MD Signed: 03/16/2021 8:07 PM Workstation Name: [id number]
[2021-03-16 20:51] LABS: Bilirubin,Urine NEG (Negative); Blood,Urine LG (Negative); Color,Urine Red (Yellow); Mucus,Urine 1+ /HPF; Urobilinogen,Urine < 2.0 mg/dL (<2.0)
[2021-03-16 21:11] LABS: RBC,Urine > 182.0 /HPF (0.0-6.0); WBC,Urine > 182.0 /HPF (0.0-6.0)
[2021-03-16] MEDS ORDERED: cephALEXin 500 MG CAP PO ONE (21:27)
[2021-03-16 22:23] VITALS: BP 175/88
== END 2021-03-16 22:34 | disposition home or self-care (01) ==
LOC: ED 16:53
DX: R10.30 Lower abdominal pain, unspecified (principal); N39.0 Urinary tract infection, site not specified; I10 Essential (primary) hypertension; J45.909 Unspecified asthma, uncomplicated; E28.2 Polycystic ovarian syndrome; Z98.890 Other specified postprocedural states; F17.200 Nicotine dependence, unspecified, uncomplicated; Z88.8 Allergy status to other drugs, medicaments and biological substances; Z91.013 Allergy to seafood
CPT/HCPCS: 36415; 74176; 80053; 81001; 83690; 84702; 85025; 96374; 96375; 99284; J1170; J2405

== ENCOUNTER 2021-11-16 22:28 | Emergency (ER) | payer MEDICAID ==
[2021-11-16 22:47] VITALS: BP 156/91
[2021-11-17] MEDS ORDERED: KETOROLAC 60 MG/2 ML INJ IM ONE (02:50)
[2021-11-17] MEDS ORDERED: ONDANSETRON 4 MG ODT TAB PO ONE (02:50)
--- NOTE | 2021-11-17 02:52 | Emergency Department Report ---
ED Abdominal Pain HPI - General Chief Complaint: Nausea/Vomiting/Diarrhea Stated Complaint: STOMACH PAIN Time Seen by Provider: 11/17/21 02:31 Source: patient Mode of arrival: Ambulatory Limitations: No Limitations - History of Present Illness Initial Comments: 41-year-old female the past medical history of obesity, hypertension, asthma, previous presents to the hospital with complaints of intermittent lower abdominal and lower back pain for the next 3 days. Pain is intermittent, worse with palpation and movement, no alleviating factors. Pain is moderate in intensity and sharp and cramping in nature. Patient denies abnormal vaginal discharge, bleeding, or dysuria. She has nausea without vomiting or fever. She has 3-4 active sexual partners and does not use condoms. - Related Data Home Medications Medication Instructions Recorded Confirmed Last Taken Labetalol 300 mg PO Q8HR 07/17/16 07/17/16 1 Day Ago ~07/16/16 Methyldopa (Nf) [Aldomet] 500 mg PO BID 07/17/16 07/17/16 1 Day Ago ~07/16/16 Previous Rx's Medication Instructions Recorded Last Taken Type Docusate Sodium [Colace] 100 mg PO BID PRN #60 capsule 07/20/16 Unknown Rx Ibuprofen [Motrin] 800 mg PO Q8HR PRN #60 tablet 07/20/16 Unknown Rx Methyldopa (Nf) [Aldomet] 500 mg PO TID #90 tablet 07/20/16 Unknown Rx Oxycodone HCl/Acetaminophen 1 each PO Q6HR PRN #45 tablet 07/20/16 Unknown Rx [Percocet 7.5/325 mg] NIFEdipine XL [Procardia Xl] 90 mg PO QDAY #30 tablet 07/23/16 Unknown Rx Nitrofurantoin [place]/M-Cryst 100 mg PO Q12HR #14 capsule 10/14/16 Unknown Rx [Macrobid CAP] amLODIPine [Norvasc] 5 mg PO DAILY #30 tab 03/07/19 Unknown Rx hydroCHLOROthiazide [HCTZ] 25 mg PO QDAY #30 tablet 03/07/19 Unknown Rx Naproxen 500 mg PO BID PRN #30 tablet 11/28/19 Unknown Rx Capsaicin 1 applicatio TP TID PRN #1 tube 03/17/20 Unknown Rx Naproxen 500 mg PO BID PRN #30 tablet 03/17/20 Unknown Rx predniSONE [Deltasone] 40 mg PO QDAY 5 Days #10 tab 03/17/20 Unknown Rx cephALEXin [Keflex] 500 mg PO Q6HR #28 capsule 03/16/21 Unknown Rx traMADoL [Ultram] 50 mg PO Q6HR PRN #24 tablet 03/16/21 Unknown Rx Cefaclor [Cefaclor ER] 500 mg PO BID #14 tab 11/17/21 Unknown Rx Ibuprofen [Motrin] 800 mg PO Q8HR PRN #30 tablet 11/17/21 Unknown Rx Ondansetron [Zofran Odt] 4 mg PO Q8HR PRN #20 tab.rapdis 11/17/21 Unknown Rx traMADoL [Ultram 50 MG tab] 50 mg PO Q6HR PRN #20 tablet 11/17/21 Unknown Rx Allergies Allergy/AdvReac Type Severity Reaction Status Date / Time lisinopril Allergy Severe Angioedema Verified 09/30/14 08:57 shellfish derived Allergy Swelling Verified 01/03/13 16:41 ED Review of Systems ROS: Stated complaint: STOMACH PAIN Other details as noted in HPI Comment: All other systems reviewed and negative ED Past Medical Hx - Past Medical History Hx Hypertension: Yes (PIH) Hx Congestive Heart Failure: No Hx Diabetes: No Hx Deep Vein Thrombosis: No Hx Renal Disease: No Hx Sickle Cell Disease: No Hx Seizures: (preeclampsia) Hx Asthma: Yes Hx COPD: No Hx HIV: No Additional medical history: Preeclampsia, PCOS - Surgical History Additional Surgical History: tonsilectomy, leep procedure, tubes in ears, C- section x 1 - Social History Smoking Status: Current Every Day Smoker Substance Use Type: None - Medications Home Medications: Home Medications Medication Instructions Recorded Confirmed Last Taken Type Labetalol 300 mg PO Q8HR 07/17/16 07/17/16 1 Day Ago History ~07/16/16 Methyldopa (Nf) [Aldomet] 500 mg PO BID 07/17/16 07/17/16 1 Day Ago History ~07/16/16 Docusate Sodium [Colace] 100 mg PO BID PRN #60 capsule 07/20/16 Unknown Rx Ibuprofen [Motrin] 800 mg PO Q8HR PRN #60 tablet 07/20/16 Unknown Rx Methyldopa (Nf) [Aldomet] 500 mg PO TID #90 tablet 07/20/16 Unknown Rx Oxycodone HCl/Acetaminophen 1 each PO Q6HR PRN #45 tablet 07/20/16 Unknown Rx [Percocet 7.5/325 mg] NIFEdipine XL [Procardia Xl] 90 mg PO QDAY #30 tablet 07/23/16 Unknown Rx Nitrofurantoin [place]/M-Cryst 100 mg PO Q12HR #14 capsule 10/14/16 Unknown Rx [Macrobid CAP] amLODIPine [Norvasc] 5 mg PO DAILY #30 tab 03/07/19 Unknown Rx hydroCHLOROthiazide [HCTZ] 25 mg PO QDAY #30 tablet 03/07/19 Unknown Rx Naproxen 500 mg PO BID PRN #30 tablet 11/28/19 Unknown Rx Capsaicin 1 applicatio TP TID PRN #1 tube 03/17/20 Unknown Rx Naproxen 500 mg PO BID PRN #30 tablet 03/17/20 Unknown Rx predniSONE [Deltasone] 40 mg PO QDAY 5 Days #10 tab 03/17/20 Unknown Rx cephALEXin [Keflex] 500 mg PO Q6HR #28 capsule 03/16/21 Unknown Rx traMADoL [Ultram] 50 mg PO Q6HR PRN #24 tablet 03/16/21 Unknown Rx Cefaclor [Cefaclor ER] 500 mg PO BID #14 tab 11/17/21 Unknown Rx Ibuprofen [Motrin] 800 mg PO Q8HR PRN #30 tablet 11/17/21 Unknown Rx Ondansetron [Zofran Odt] 4 mg PO Q8HR PRN #20 tab.rapdis 11/17/21 Unknown Rx traMADoL [Ultram 50 MG tab] 50 mg PO Q6HR PRN #20 tablet 11/17/21 Unknown Rx ED Physical Exam - General Limitations: No Limitations - Other Other exam information: General: No acute distress Head: Atraumatic Eyes: normal appearance ENT: Moist mucous membranes Neck: Normal appearance, no midline tenderness Chest: Clear to auscultation bilaterally CV: Regular rate and rhythm Abdomen: Soft, normal bowel sounds, generalized tenderness greatest in the suprapubic area, no rebound or guard Back: Normal inspection, right lower back muscular tenderness Extremity: Normal inspection, full range of motion Neuro: Alert O x 3, no facial asymmetry, speech clear, no gross motor sensory deficit Psych: Appropriate behavior Skin: No rash ED Course Vital Signs 11/16/21 22:46 Temperature 98.6 F Pulse Rate 63 Respiratory 18 Rate Blood Pressure 156/91 O2 Sat by Pulse 99 Oximetry ED Medical Decision Making - Medical Decision Making 41-year-old female presents to the hospital suprapubic abdominal pain radiating to right lower back. Mild nausea without vomiting reported. Urine suggestive of UTI. Urine negative. Patient does not have fever and is not septic appearing. Provided a dose of Toradol, Zofran, and Ceftin in the ED and will be sent home with prescriptions Critical Care Time: No Critical care attestation.: If time is entered above; I have spent that time in minutes in the direct care of this critically ill patient, excluding procedure time. ED Disposition Clinical Impression: UTI (urinary tract infection) Disposition: HOME / SELF CARE / HOMELESS Is pt being admited?: No Does the pt Need Aspirin: No Condition: Stable Instructions: Urinary Tract Infection, Adult, [id number] Additional Instructions: Take the medication as prescribed. Follow-up with your doctor or doctor/clinic provided. Return if symptoms worsen as indicated by your discharge instructions. Prescriptions: Cefaclor [Cefaclor ER] 500 mg PO BID #14 tab Ibuprofen [Motrin] 800 mg PO Q8HR PRN #30 tablet PRN Reason: Pain , Severe (7-10) RX: traMADoL [Ultram 50 MG tab] 50 mg PO Q6HR PRN #20 tablet PRN Reason: Pain Ondansetron [Zofran Odt] 4 mg PO Q8HR PRN #20 tab.rapdis PRN Reason: Nausea And Vomiting Referrals: BECCA MCCURDY MD [Staff Physician] - 3-[address] [facility] [Provider Group] - 3-5 Days Time of Disposition: 03:20
[2021-11-17 03:05] LABS: Mucus,Urine FEW /HPF
[2021-11-17 03:07] LABS: Bilirubin,Urine Negative (Negative); Color,Urine Straw (Yellow)
[2021-11-17 03:08] LABS: Blood,Urine 2+ (Negative); HCG Qualitative,Urine Negative (Negative)
== END 2021-11-17 03:52 | disposition home or self-care (01) ==
LOC: ED 22:28
DX: N39.0 Urinary tract infection, site not specified (principal); I10 Essential (primary) hypertension; J45.909 Unspecified asthma, uncomplicated; F17.200 Nicotine dependence, unspecified, uncomplicated; Z91.013 Allergy to seafood; Z91.09 Other allergy status, other than to drugs and biological substances; Z79.899 Other long term (current) drug therapy
CPT/HCPCS: 81001; 81025; 87086; 96372; 99283; J1885; J3490; Q0162